=== PATIENT | male | born 1960 | race Caucasian/White ===

== ENCOUNTER 2020-09-28 08:45 | Day surgery (SDC) | payer BC ==
[2020-09-27 11:37] VITALS: BMI 25.1
[~2020-09-28 08:45] MED LIST: LACTATED RINGERS 1,000 ML IV SCH
[2020-09-28 09:04] VITALS: TEMP 98.2
[2020-09-28] MEDS ORDERED: PROPOFOL 10 MG/ML 20 ML VIAL IV ONE (09:30)
--- NOTE | 2020-09-28 09:34 | P.GSHP ---
History of Present Illness H&P Date: 09/28/20 Chief Complaint: Screening colonoscopy Is a 59-year-old male presents today for screening colonoscopy. Patient denies a significant GI complaints. He's never had a colonoscopy before. Past Medical History Past Medical History: Osteoarthritis (OA) History of Any Multi-Drug Resistant Organisms: None Reported Past Surgical History: Hernia Repair Past Anesthesia/Blood Transfusion Reactions: No Reported Reaction Past Psychological History: No Psychological Hx Reported Smoking Status: Current every day smoker Past Alcohol Use History: Occasional Additional Past Alcohol Use History / Comment(s): smokes 4-5 cigarettes daily, has smoked for 30 yrs Past Drug Use History: None Reported - Past Family History Mother Family Medical History: Cancer Medications and Allergies Home Medications Medication Instructions Recorded Confirmed Type Multivitamins, Thera [Multivitamin 1 tab PO DAILY 09/27/20 09/27/20 History (formulary)] Allergies Allergy/AdvReac Type Severity Reaction Status Date / Time No Known Allergies Allergy Verified 09/27/20 11:31 Surgical - Exam Vital Signs Temp Pulse Resp BP Pulse Ox 98.2 F 72 20 153/94 91 L 09/28/20 09:02 09/28/20 09:02 09/28/20 09:02 09/28/20 09:02 09/28/20 09:02 - General well developed, well nourished, no distress - Eyes PERRL - ENT normal pinna - Neck no masses - Respiratory normal expansion - Cardiovascular Rhythm: regular - Abdomen Abdomen: soft, non tender Assessment and Plan Assessment: We'll perform screening colonoscopy.
--- NOTE | 2020-09-28 09:47 | P.OP ---
Date of Procedure: 09/28/20 Preoperative Diagnosis: Screening colonoscopy Postoperative Diagnosis: Diverticulosis Procedure(s) Performed: Colonoscopy Anesthesia: MAC Surgeon: Jose Neal Pathology: none sent Condition: stable Disposition: PACU Description of Procedure: The patient's placed on the endoscopy table in the lateral position. He received IV sedation. Digital rectal exam was performed which revealed no abnormalities. The flexible colonoscope was then placed patient anus passed throughout the entire colon. Ileocecal valve sutures. The cecum, ascending and transverse colon appeared normal. In the descending and sigmoid colon there is moderate diverticular changes. Scope was then brought back the rectum and this appeared normal. Scope was withdrawn for patient.
[2020-09-28 09:51] VITALS: RESP 16
[2020-09-28 10:06] VITALS: BP 117/79; PULSE 70
== END 2020-09-28 10:37 | disposition home or self-care (01) ==
LOC: ORWHC2ENDO 08:45
PROVIDERS: ATTEND Surgery
DX: Z12.11 Encounter for screening for malignant neoplasm of colon (principal); K57.30 Diverticulosis of large intestine without perforation or abscess without bleeding; M19.90 Unspecified osteoarthritis, unspecified site; Z98.890 Other specified postprocedural states; F17.210 Nicotine dependence, cigarettes, uncomplicated; Z80.9 Family history of malignant neoplasm, unspecified
CPT/HCPCS: J2704; G0121; 45378

== ENCOUNTER → 2023-05-21 | Outpatient (CLI) | payer OTHER ==
--- NOTE | 2023-05-21 15:38 | XR ---
EXAMINATION TYPE: XR chest 2V DATE OF EXAM: 05/21/2023 COMPARISON: NONE HISTORY: Chronic cough. TECHNIQUE: Frontal and lateral views of the chest are obtained. FINDINGS: There is no focal air space opacity, pleural effusion, or pneumothorax seen. The cardiac silhouette size is within normal limits. The osseous structures are intact. IMPRESSION: No acute cardiopulmonary process.
== END | disposition home or self-care (01) ==
LOC: RADXRMAIN 15:18
PROVIDERS: ATTEND Family Medicine
DX: J18.9 Pneumonia, unspecified organism (principal); R05.3 Chronic cough
CPT/HCPCS: 71046

== ENCOUNTER → 2023-07-02 | Outpatient (CLI) | payer OTHER ==
--- NOTE | 2023-07-02 16:59 | XR ---
EXAMINATION TYPE: XR chest 2V DATE OF EXAM: 07/02/2023 4:52 PM CLINICAL INDICATION:Male, 62 years old with history of M17.12 UNILATERAL PRIMARY OSTEOARTHRITIS, LEFT KNE; PHH COMPARISON: Chest radiographs fro 05/21/2023. TECHNIQUE: XR chest 2V Frontal and lateral views of the chest. FINDINGS: Lungs/Pleura: Right middle lobe airspace opacities. There is flattening of diaphragms with increased lucency in the lung apices. Pulmonary vascularity: Unremarkable. Heart/mediastinum: Cardiomediastinal silhouette is unremarkable. Musculoskeletal: No acute osseous pathology. Other findings: None IMPRESSION: 1. Right lower lobe airspace opacities correlate for pneumonia. 2. COPD changes.
[2023-07-02 18:11] LABS: Appearance,Urine Clear (Clear); Bilirubin,Urine Negative (Negative); Blood,Urine Moderate (Negative); Color,Urine Yellow; Glucose,Urine (UA) 1+ (Negative); Ketones,Urine Negative (Negative); Leukocyte Esterase,Urine Negative (Negative); Nitrite,Urine Negative (Negative); Protein,Urine Negative (Negative); RBC,Urine 10 /hpf (0-5); Specific Gravity,Urine 1.012 (1.001-1.035); WBC,Urine 1 /hpf (0-5)
[2023-07-03 02:06] LABS: ALT 27 U/L (10-49); AST 12 U/L (14-35); Albumin 4.1 g/dL (3.8-4.9); Albumin/Globulin Ratio 1.52 Ratio (1.60-3.17); Alkaline Phosphatase 62 U/L (41-126); BUN/Creat Ratio 14.14 Ratio (12.00-20.00); Blood Urea Nitrogen 9.9 mg/dL (9.0-27.0); Carbon Dioxide 25.8 mmol/L (21.6-31.8); Chloride 94 mmol/L (96-109); Globulin 2.7 g/dL (1.6-3.3); Glucose 115 mg/dL (70-110); Potassium 4.2 mmol/L (3.5-5.5); Sodium 132 mmol/L (135-145); Total Bilirubin 0.5 mg/dL (0.3-1.2); Total Protein 6.8 g/dL (6.2-8.2)
[2023-07-03 04:19] LABS: HCT 34.6 % (39.6-50.0); HGB 11.2 g/dL (13.0-17.0); MCH 35.3 pg (27.0-32.0); MCHC 32.4 g/dL (32.0-37.0); MCV 109.1 FL (80.0-97.0); Mean Platelet Volume 10.3 FL (9.5-12.2); NRBC Per 100 WBC 0 X 10*3/uL (0.00-0.01); Platelet Count 178 X 10*3/uL (140-440); RBC 3.17 X 10*6/uL (4.40-5.60); RDW 14.2 % (11.5-14.5); WBC 19.01 X 10*3/uL (4.50-10.00)
[2023-07-03 04:20] LABS: Basophils # (M) 0.38 X 10*3/uL (0.00-0.10); Eosinophils # (M) 0 X 10*3/uL (0.04-0.35); Lymphocytes # (M) 15.78 X 10*3/uL (0.90-5.00); Macrocytosis (M) 2+; Monocytes # (M) 0 X 10*3/uL (0.20-1.00); Neutrophils # (M) 2.85 X 10*3/uL (1.80-7.70); Neutrophils % (M) 15 %
== END | disposition home or self-care (01) ==
LOC: RADXRMAIN 15:51
PROVIDERS: ATTEND Family Medicine
DX: J44.9 Chronic obstructive pulmonary disease, unspecified (principal); R91.8 Other nonspecific abnormal finding of lung field
CPT/HCPCS: 71046; 80053; 81001; 85025

== ENCOUNTER 2023-08-04 15:11 | Observation (INO) | payer OTHER ==
[2023-08-04 16:07] LABS: ALT 15 U/L (4-49); AST 15 U/L (17-59); African American GFR (CKD) >90 (>60 ml/min/1.73 sqM); Albumin 3.7 g/dL (3.5-5.0); Alkaline Phosphatase 55 U/L (38-126); Anion Gap 6 mmol/L; Blood Urea Nitrogen 20 mg/dL (9-20); Calcium 8.6 mg/dL (8.4-10.2); Carbon Dioxide 28 mmol/L (22-30); Chloride 100 mmol/L (98-107); Glucose 100 mg/dL (74-99); Non-African American GFR(CKD) >90 (>60 ml/min/1.73 sqM); Potassium 4.6 mmol/L (3.5-5.1); Sodium 134 mmol/L (137-145); Total Bilirubin 0.7 mg/dL (0.2-1.3); Total Protein 6.4 g/dL (6.3-8.2)
[2023-08-04 16:10] LABS: INR 0.9 (<1.2); Partial Thromboplastin Time 26.1 sec (22.0-30.0)
--- NOTE | 2023-08-04 16:10 | ED ---
General Adult HPI - General Chief complaint: Shortness of Breath Stated complaint: SOB Time Seen by Provider: 08/04/23 15:47 Source: patient, RN notes reviewed, old records reviewed Mode of arrival: ambulatory Limitations: no limitations - History of Present Illness Initial comments: 62-year-old male presenting for evaluation of cough and dyspnea. Symptoms have been progressive over the past 6 weeks. He does have previous diagnosis of COPD and was a smoker for many years. Not currently smoking. No fever. Cough continues which is nonproductive. No central chest pain. No fever. No lower extremity pain or swelling. Patient just completed a course of steroids and Levaquin as an outpatient. - Related Data Home Medications Medication Instructions Recorded Confirmed Multivitamins, Thera [Multivitamin 1 tab PO DAILY 09/27/20 09/27/20 (formulary)] Allergies Allergy/AdvReac Type Severity Reaction Status Date / Time No Known Allergies Allergy Verified 08/04/23 15:17 Review of Systems ROS Statement: Those systems with pertinent positive or pertinent negative responses have been documented in the HPI. ROS Other: All systems not noted in ROS Statement are negative. Past Medical History Past Medical History: COPD, Osteoarthritis (OA) Additional Past Medical History / Comment(s): CLL History of Any Multi-Drug Resistant Organisms: None Reported Past Surgical History: Hernia Repair Past Anesthesia/Blood Transfusion Reactions: No Reported Reaction Past Psychological History: No Psychological Hx Reported Smoking Status: Former smoker Past Alcohol Use History: Occasional Past Drug Use History: None Reported - Past Family History Mother Family Medical History: Cancer General Exam Limitations: no limitations General appearance: alert, in no apparent distress Head exam: Present: atraumatic, normocephalic Eye exam: Present: normal appearance, PERRL Neck exam: Present: normal inspection. Absent: tenderness, meningismus Respiratory exam: Present: respiratory distress, decreased breath sounds. Absent: wheezes Cardiovascular Exam: Present: regular rate, normal rhythm GI/Abdominal exam: Present: soft. Absent: distended, tenderness, guarding Extremities exam: Present: normal inspection, normal capillary refill. Absent: pedal edema Neurological exam: Present: alert, oriented X3, CN II-XII intact. Absent: motor sensory deficit Psychiatric exam: Present: normal affect, normal mood Skin exam: Present: warm, dry, intact Course Vital Signs 08/04/23 08/04/23 08/04/23 15:12 17:17 18:21 Temperature 98.7 F Pulse Rate 98 101 H 100 Respiratory 16 16 Rate Blood Pressure 142/88 129/82 O2 Sat by Pulse 93 L 94 L Oximetry 08/04/23 18:37 Temperature Pulse Rate 106 H Respiratory Rate Blood Pressure O2 Sat by Pulse Oximetry Medical Decision Making - Medical Decision Making Was pt. sent in by a medical professional or institution (, [facility], [facility], urgent care, hospital, or long-term...) When possible be specific @ -No Did you speak to anyone other than the patient for history (EMS, parent, family, police, friend...)? What history was obtained from this source @ -No Did you review nursing and triage notes (agree or disagree)? Why? @ -I reviewed and agree with nursing and triage notes Were old charts reviewed (outside hosp., previous admission, EMS record, old EKG, old radiological studies, urgent care reports/EKG's, long-term records)? Report findings @ -No old charts were reviewed Differential Diagnosis (chest pain, altered mental status, abdominal pain women, abdominal pain men, vaginal bleeding, weakness, fever, dyspnea, syncope, headache, dizziness, GI bleed, back pain, seizure, CVA, palpatations, mental health, musculoskeletal)? @Differential Dyspnea: Coronary syndrome, arrhythmia, tamponade, asthma, COPD, pulmonary embolism, pneumonia, pneumothorax, pulmonary effusion, anaphylaxis, diabetic ketoacidosis, flailed chest, pulmonary contusion, diaphragmatic rupture, anemia, neuromuscular, this is not meant to be an all-inclusive list. EKG interpreted by me (3pts min.). @ -Sinus rhythm rate of 99, OH interval 130, QRS duration 81, QTc [address] segment elevation. X-rays interpreted by me (1pt min.). @Chest x-ray consistent with COPD without focal pneumonia or pneumothorax CT interpreted by me (1pt min.). @ -None done U/S interpreted by me (1pt. min.). @ -None done What testing was considered but not performed or refused? (CT, X-rays, U/S, labs)? Why? @ -None What meds were considered but not given or refused? Why? @ -None Did you discuss the management of the patient with other professionals (professionals i.e. , PA, VISUAL STYLIST, lab, RT, psych nurse, social welfare research worker, assignment officer, teacher, branch lending officer, mattress spring encaser)? Give summary @Dr. Mendieta Was smoking cessation discussed for >3mins.? @ -No Was critical care preformed (if so, how long)? @ -No Were there social determinants of health that impacted care today? How? (Homelessness, low income, unemployed, alcoholism, drug addiction, transportation, low edu. Level, literacy, decrease access to med. care, fci, rehab)? @ -No Was there de-escalation of care discussed even if they declined (Discuss DNR or withdrawal of care, Hospice)? DNR status @ -No What co-morbidities impacted this encounter? (DM, HTN, Smoking, COPD, CAD, Ca ncer, CVA, ARF, Chemo, Hep., AIDS, mental health diagnosis, sleep apnea, morbid obesity)? @ -[COPD, CLL Was patient admitted / discharged? Hospital course, mention meds given and route, prescriptions, significant lab abnormalities, going to OR and other pertinent info. @ -62-year-old male with cough and dyspnea over the past 6 weeks, has been on multiple rounds of antibiotics, and steroids and continues to have moderate dyspnea. Patient has mild respiratory distress with decreased air entry b ilaterally. Abnormal CBC and history of CLL. Normal electrolytes, negative troponin, negative BNP. D-dimer pending. Patient started on IV steroids, albuterol, Atrovent, antibiotics for COPD exacerbation. He will be admitted to Dr. Mendieta with pulmonary on consult. Undiagnosed new problem with uncertain prognosis? @ -[No Drug Therapy requiring intensive monitoring for toxicity (Heparin, Nitro, Insulin, Cardizem)? @ -No Were any procedures done? @ -No Diagnosis/symptom? @ -COPD exacerbation Acute, or Chronic, or Acute on Chronic? @Acute Uncomplicated (without systemic symptoms) or Complicated (systemic symptoms)? @ -Default Side effects of treatment? @ -No Exacerbation, Progression, or Severe Exacerbation? @ -No Poses a threat to life or bodily function? How? (Chest pain, USA, SD, pneumonia, PE, COPD, DKA, ARF, appy, cholecystitis, CVA, Diverticulitis, Homicidal, Suicidal, threat to staff... and all critical care pts) @ -yes, respiratory failure - Lab Data Result diagrams: 08/04/23 15:21 08/04/23 15:21 Lab Results 08/04/23 08/04/23 08/04/23 Range/Units 15:21 15:21 15:21 WBC 28.0 H (3.8-10.6) k/uL RBC 3.08 L (4.30-5.90) m/uL Hgb 11.3 L (13.0-17.5) gm/dL Hct 33.6 L (39.0-53.0) % MCV 108.9 H (80.0-100.0) fL MCH 36.8 H (25.0-35.0) pg MCHC 33.7 (31.0-37.0) g/dL RDW 14.7 (11.5-15.5) % Plt Count 157 (150-450) k/uL MPV 8.5 Neutrophils % (Manual) 4 % Lymphocytes % (Manual) 90 % Monocytes % (Manual) 6 % Neutrophils # (Manual) 1.12 L (1.3-7.7) k/uL Lymphocytes # (Manual) 25.20 H (1.0-4.8) k/uL Monocytes # (Manual) 1.68 H (0-1.0) k/uL Nucleated RBCs 0 (0-0) /100 WBC Differential Comment Manual Slide Review Performed Macrocytosis Marked A PT 10.0 (10.0-12.5) sec INR 0.9 (<1.2) APTT 26.1 (22.0-30.0) sec Sodium 134 L (137-145) mmol/L Potassium 4.6 (3.5-5.1) mmol/L Chloride 100 (98-107) mmol/L Carbon Dioxide 28 (22-30) mmol/L Anion Gap 6 mmol/L BUN 20 (9-20) mg/dL Creatinine 0.69 (0.66-1.25) mg/dL Est GFR (CKD-EPI)AfAm >90 (>60 ml/min/1.73 sqM) Est GFR (CKD-EPI)NonAf >90 (>60 ml/min/1.73 sqM) Glucose 100 H (74-99) mg/dL Plasma Lactic Acid Benito (0.7-2.0) mmol/L Calcium 8.6 (8.4-10.2) mg/dL Total Bilirubin 0.7 (0.2-1.3) mg/dL AST 15 L (17-59) U/L ALT 15 (4-49) U/L Alkaline Phosphatase 55 (38-126) U/L Troponin I (0.000-0.034) ng/mL NT-Pro-B Natriuret Pep 249 pg/mL Total Protein 6.4 (6.3-8.2) g/dL Albumin 3.7 (3.5-5.0) g/dL Influenza Type A (PCR) (Not Detectd) Influenza Type B (PCR) (Not Detectd) RSV (PCR) (Not Detectd) SARS-CoV-2 (PCR) (Not Detectd) 08/04/23 08/04/23 08/04/23 Range/Units 15:21 15:21 16:25 WBC (3.8-10.6) k/uL RBC (4.30-5.90) m/uL Hgb (13.0-17.5) gm/dL Hct (39.0-53.0) % MCV (80.0-100.0) fL MCH (25.0-35.0) pg MCHC (31.0-37.0) g/dL RDW (11.5-15.5) % Plt Count (150-450) k/uL MPV Neutrophils % (Manual) % Lymphocytes % (Manual) % Monocytes % (Manual) % Neutrophils # (Manual) (1.3-7.7) k/uL Lymphocytes # (Manual) (1.0-4.8) k/uL Monocytes # (Manual) (0-1.0) k/uL Nucleated RBCs (0-0) /100 WBC Differential Comment Manual Slide Review Macrocytosis PT (10.0-12.5) sec INR (<1.2) APTT (22.0-30.0) sec Sodium (137-145) mmol/L Potassium (3.5-5.1) mmol/L Chloride (98-107) mmol/L Carbon Dioxide (22-30) mmol/L Anion Gap mmol/L BUN (9-20) mg/dL Creatinine (0.66-1.25) mg/dL Est GFR (CKD-EPI)AfAm (>60 ml/min/1.73 sqM) Est GFR (CKD-EPI)NonAf (>60 ml/min/1.73 sqM) Glucose (74-99) mg/dL Plasma Lactic Acid Benito 0.9 (0.7-2.0) mmol/L Calcium (8.4-10.2) mg/dL Total Bilirubin (0.2-1.3) mg/dL AST (17-59) U/L ALT (4-49) U/L Alkaline Phosphatase (38-126) U/L Troponin I <0.012 (0.000-0.034) ng/mL NT-Pro-B Natriuret Pep pg/mL Total Protein (6.3-8.2) g/dL Albumin (3.5-5.0) g/dL Influenza Type A (PCR) Not Detected (Not Detectd) Influenza Type B (PCR) Not Detected (Not Detectd) RSV (PCR) Not Detected (Not Detectd) SARS-CoV-2 (PCR) Not Detected (Not Detectd) Disposition Clinical Impression: Acute exacerbation of chronic obstructive pulmonary disease Disposition: ADMITTED IP TO THIS HOSP Condition: Stable Is patient prescribed a controlled substance at d/c from ED?: No Referrals: Napoleon Mendieta DO [Primary Care Provider] - 1-2 days Time of Disposition: 18:15
[2023-08-04 16:13] LABS: HCT 33.6 % (39.0-53.0); HGB 11.3 gm/dL (13.0-17.5); MCH 36.8 pg (25.0-35.0); MCHC 33.7 g/dL (31.0-37.0); MCV 108.9 fL (80.0-100.0); Macrocytosis Marked; Mean Platelet Volume 8.5; Platelet Count 157 k/uL (150-450); RBC 3.08 m/uL (4.30-5.90); RDW 14.7 % (11.5-15.5)
[2023-08-04 16:15] LABS: NT-Pro-B-Type Natriuretic Pept 249 pg/mL
[2023-08-04 16:36] LABS: Monocytes # (M) 1.68 k/uL (0-1.0); Neutrophils # (M) 1.12 k/uL (1.3-7.7); Neutrophils % (M) 4 %; Nucleated Red Blood Cells 0 /100 WBC (0-0); Total Cells Counted 200
--- NOTE | 2023-08-04 17:15 | XR ---
EXAMINATION TYPE: XR chest 2V DATE OF EXAM: 08/04/2023 COMPARISON: 07/02/2023 HISTORY: 62 year-old male shortness of breath, difficulty breathing TECHNIQUE: PA and lateral views FINDINGS: Heart normal size. Aorta and pulmonary vasculature within normal limits. Mild central peribronchial c uffing. There is hyperinflation. No consolidation or pleural effusion. IMPRESSION: COPD. No acute process seen.
[2023-08-04] MEDS: methylPREDNISolone SOD SUCCI 125 MG/2 ML VIAL IV STA (17:16)
[2023-08-04] MEDS: IPRATROPIUM-ALBUTEROL 3 ML NEB INHALATION STA (18:19)
[2023-08-04] MEDS: ALBUTEROL NEBULIZED 2.5 MG/3 ML INHALATION STA (18:19)
[2023-08-04] MEDS ORDERED: IPRATROPIUM-ALBUTEROL 3 ML NEB INHALATION PRN (18:43)
[2023-08-04] MEDS ORDERED: NALOXONE 0.4 MG/ML 1 ML VIAL IVP PRN (18:43)
[2023-08-04] MEDS: IPRATROPIUM-ALBUTEROL 3 ML NEB INHALATION SCH (19:59)
[2023-08-04] MEDS: AZITHROMYCIN 500 MG in SODIUM CHLORIDE 0.9% 250 ML IVPB STA (20:34)
[2023-08-04] MEDS: methylPREDNISolone SOD SUCCI 125 MG/2 ML VIAL IV SCH (21:26)
[2023-08-04] MEDS: ACETAMINOPHEN TAB 500 MG TAB PO PRN (22:50)
[2023-08-05 07:47] VITALS: RESP 16
[2023-08-05] MEDS: SYMBICORT 160-4.5 MCG INHALER INHALATION SCH (08:49)
[2023-08-05] MEDS ORDERED: DEXTROSE 50% SYRINGE 50 ML IVP PRN ×2 (11:59)
--- NOTE | 2023-08-05 11:59 | P.HPIM ---
History of Present Illness H&P Date: 08/05/23 Chief Complaint: Worsening dyspnea This is a 62-year-old gentleman with past medical history significant for recent COVID-pneumonia approximately 6 weeks ago, with 3 subsequent follow-up visits outpatient with PCP receiving steroids, Rocephin , Levaquin without significant improvement, progressive dyspnea. Chest x-ray from 07/02/2023 reported right lower lobe airspace opacities correlating for pneumonia. Patient also has prior history of former nicotine dependence, smoked for 5 cigarettes daily for 30 years, COPD, osteoarthritis, CLL. Reports he is currently not not on any treatment for his CLL at this time, just monitoring. Prior cough but currently denies. Denies chest pain, palpitations. Troponins negative x 1 , EKG reported sinus rhythm .denies fever or chills. On admission, afebrile, maintaining O2 sats in the 90s on room air, mild/minimal tachycardia-resolved. Elevated WBC 28, recently completed steroid taper. Hemoglobin 1.3, MCV 108.9, platelets 157, neutrophils 1.12, lymphocytes 25.2. Coagulation panel unremarkable. Sodium 134, potassium 4.6, bicarb 28 BUN 20, creatinine 0.69. Glucose 100, lactic acid 0.9, LFTs within normal limits, with AST level mildly decreased at 15. Serology did not detect influenza type A/type B/RSV/COVID. Chest x-ray reporting COPD; mild central peribronchial cuffing, hyperinflation without consolidation or ple ural effusion, no acute process seen. Review of Systems ROS Statement: Those systems with pertinent positive or pertinent negative responses have been documented in the HPI. ROS Other: All systems not noted in ROS Statement are negative. Past Medical History Past Medical History: COPD, Osteoarthritis (OA) Additional Past Medical History / Comment(s): CLL History of Any Multi-Drug Resistant Organisms: None Reported Past Surgical History: Hernia Repair Past Anesthesia/Blood Transfusion Reactions: No Reported Reaction Past Psychological History: No Psychological Hx Reported Smoking Status: Former smoker Past Alcohol Use History: Occasional Additional Past Alcohol Use History / Comment(s): smokes 4-5 cigarettes daily, has smoked for 30 yrs Past Drug Use History: None Reported - Past Family History Mother Family Medical History: Cancer Medications and Allergies Home Medications Medication Instructions Recorded Confirmed Type Albuterol Sulfate [Albuterol 2 puff INHALATION RT-Q4H PRN 08/04/23 08/04/23 History Sulfate Hfa] Allergies Allergy/AdvReac Type Severity Reaction Status Date / Time No Known Allergies Allergy Verified 08/04/23 15:17 Physical Exam Vitals: Vital Signs Temp Pulse Pulse Resp BP BP Pulse Ox 08/05/23 09:04 84 08/05/23 08:49 84 08/05/23 07:00 98.3 F 77 16 126/83 94 L 08/05/23 02:12 97.5 F L 83 15 121/70 95 08/04/23 21:10 97.9 F 100 18 128/75 97 08/04/23 20:08 100 08/04/23 19:59 103 H 08/04/23 19:55 98.6 F 98 18 114/79 98 08/04/23 18:41 16 08/04/23 18:37 106 H 08/04/23 18:21 100 08/04/23 17:17 101 H 16 129/82 94 L 08/04/23 15:12 98.7 F 98 16 142/88 93 L Intake and Output 08/04/23 08/05/23 08/05/23 22:59 06:59 14:59 Intake Total 180 Balance 180 Intake: Oral 180 Other: # Voids 1 1 Weight 81.647 kg PHYSICAL EXAM: VITAL SIGNS: [As above] GENERAL: Alert and oriented x 3, sitting up in bed, no acute distress HEENT: Normocephalic, atraumatic, conjunctivae normal. eyes normal. NECK: Supple, no JVD. No thyroid enlargement. No LNs CARDIOVASCULAR: S1, S2 regular. No murmur RESPIRATION: Unlabored, equal air entry ,breath sounds diminished in the bases. ABDOMEN: Soft, nondistended, nontender . No guarding. no masses palpable. No ascites, No hepatosplenomegaly.positive bowel sounds LEGS: No edema. no swelling, no calf tenderness, positive DP pulses. NERVOUS SYSTEM: Cranial N 2-12 grossly normal. No focal deficits. Strength and sensation grossly intact. Skin: Warm and dry, no rash Results CBC & Chem 7: 08/04/23 15:21 08/04/23 15:21 Labs: Abnormal Lab Results - Last 24 Hours (Table) 08/04/23 08/04/23 Range/Units 15:21 15:21 WBC 28.0 H (3.8-10.6) k/uL RBC 3.08 L (4.30-5.90) m/uL Hgb 11.3 L (13.0-17.5) gm/dL Hct 33.6 L (39.0-53.0) % MCV 108.9 H (80.0-100.0) fL MCH 36.8 H (25.0-35.0) pg Neutrophils # (Manual) 1.12 L (1.3-7.7) k/uL Lymphocytes # (Manual) 25.20 H (1.0-4.8) k/uL Monocytes # (Manual) 1.68 H (0-1.0) k/uL Macrocytosis Marked A Sodium 134 L (137-145) mmol/L Glucose 100 H (74-99) mg/dL AST 15 L (17-59) U/L Thrombosis Risk Factor Assmnt - Choose All That Apply Any of the Below Risk Factors Present?: Yes Each Factor Represents 1 point: Abnormal pulmonary function (COPD), Obesity (BMI >25) Other Risk Factors: Yes Each Risk Factor Represents 2 Points: Age 61-74 years Other congenital or acquired thrombophilia - If yes, enter type in comment: No Thrombosis Risk Factor Assessment Total Risk Factor Score: 4 Thrombosis Risk Factor Assessment Level: Moderate Risk Assessment and Plan Assessment: Acute COPD exacerbation Recent COVID pneumonia 6 weeks ago. Chest x-ray 07/02 reported right lower lobe airspace opacities, repeat chest x-ray on admission reporting no acute process. Immunocompromised in a patient with history of CLL COPD Prior nicotine dependence x 30 years Osteoarthritis Plan: Continue on current medication regimen, monitoring and symptomatic treatment. Aggressive pulmonary toileting, maintain nebulized bronchodilators, Pulmicort, IV steroids,azithromycin and ceftriaxone. Blood cultures in progress. Procalcitonin pending. Pulmonary consult in place, recommendations pending. The impression and plan of care has been dictated as directed. : I performed a history and examination of this patient, discussed the same with the dictator. I agree with the dictator's note ,documented as a scribe. Any additional findings or plans will be noted.
[2023-08-05 12:30] LABS: Glucose,Whole Blood 137 mg/dL (70-110)
[2023-08-05] MEDS: INSULIN ASPART (NovoLOG) 100 UNIT/ML VIAL SQ SCH (12:32)
[2023-08-05] MEDS: PANTOPRAZOLE 40 MG/10 ML VIAL IVP SCH (12:33)
--- NOTE | 2023-08-05 12:51 | P.CNPUL ---
History of Present Illness Consult date: 08/05/23 Requesting physician: Napoleon Mendieta Reason for consult: dyspnea, abnormal CXR/CT Chief complaint: Shortness of breath, cough, congestion History of present illness: This is a pleasant 62-year-old male patient with a known history of chronic lymphocytic leukemia, chronic obstructive pulmonary disease, former smoker of greater than 40 years however quit 5 years ago. He is maintained on albuterol in the outpatient setting. He does not follow with pulmonology. He developed COVID infection in June 2023 and since that time he has been having issues with shortness of breath cough and congestion. He has been on steroids twice and most recently on Levaquin. He gets better briefly but then his symptoms return. He presented here to the emergency room yesterday with ongoing issues with shortness of breath cough and congestion. Chest x-ray reveals evidence of COPD but no acute pulmonary process. White count 28.0. Hemoglobin 11.3. Platelets 157. D-dimer 0.25. Sodium 134. Potassium 4.6. Bicarb 28. BUN 20. Creatinine 0.69. Glucose 100. proBNP 249. Procalcitonin 0.05. Influenza, RSV and COVID-19 screens negative. He is seen today in consultation on the regular medical floor. He is currently sitting up in bed. Awake and alert in no acute distress. Breathing a bit easier today compared to yesterday. He has been initiated on DuoNeb inhalations, Symbicort, Solu-Medrol. Review of Systems REVIEW OF SYSTEMS: CONSTITUTIONAL: Denies any recent significant weight loss or weight gain. EYES: Denies change in vision. EARS, NOSE, MOUTH, THROAT: Denies headaches, denies sore throat. CARDIOVASCULAR: Denies chest pain, palpitations or syncopal episodes. RESPIRATORY: Positive for shortness of breath, cough, congestion no hemoptysis. GASTROINTESTINAL: Denies change in appetite, denies abdominal pain GENITOURINARY: Denies hematuria, denies infections. MUSKULOSKELETAL: Denies pain, denies swelling. INTEGUMENTARY: Denies rash, denies eczema. NEUROLOGICAL: Denies recent memory loss, no recent seizure activity. PSYCHIATRIC: Denies anxiety, denies depression. HEMATOLOGIC/LYMPHATIC: Denies anemia, denies enlarged lymph nodes. Past Medical History Past Medical History: COPD, Osteoarthritis (OA) Additional Past Medical History / Comment(s): CLL History of Any Multi-Drug Resistant Organisms: None Reported Past Surgical History: Hernia Repair Past Anesthesia/Blood Transfusion Reactions: No Reported Reaction Past Psychological History: No Psychological Hx Reported Smoking Status: Former smoker Past Alcohol Use History: Occasional Additional Past Alcohol Use History / Comment(s): smokes 4-5 cigarettes daily, has smoked for 30 yrs Past Drug Use History: None Reported - Past Family History Mother Family Medical History: Cancer Medications and Allergies Home Medications Medication Instructions Recorded Confirmed Type Albuterol Sulfate [Albuterol 2 puff INHALATION RT-Q4H PRN 08/04/23 08/04/23 History Sulfate Hfa] Allergies Allergy/AdvReac Type Severity Reaction Status Date / Time No Known Allergies Allergy Verified 08/04/23 15:17 Physical Exam Vitals: Vital Signs Temp Pulse Pulse Resp BP BP Pulse Ox 08/05/23 12:29 80 08/05/23 12:19 72 08/05/23 09:04 84 08/05/23 08:49 84 08/05/23 07:00 98.3 F 77 16 126/83 94 L 08/05/23 02:12 97.5 F L 83 15 121/70 95 08/04/23 21:10 97.9 F 100 18 128/75 97 08/04/23 20:08 100 08/04/23 19:59 103 H 08/04/23 19:55 98.6 F 98 18 114/79 98 08/04/23 18:41 16 08/04/23 18:37 106 H 08/04/23 18:21 100 08/04/23 17:17 101 H 16 129/82 94 L 08/04/23 15:12 98.7 F 98 16 142/88 93 L Intake and Output 08/04/23 08/05/23 08/05/23 22:59 06:59 14:59 Intake Total 180 Balance 180 Intake: Oral 180 Other: # Voids 1 1 Weight 81.647 kg GENERAL EXAM: Alert, pleasant 62-year-old male patient, on room air, comfortable in no apparent distress. HEAD: Normocephalic. EYES: Normal reaction of pupils, equal size. NOSE: Clear with pink turbinates. THROAT: No erythema or exudates. NECK: No masses, no JVD. CHEST: No chest wall deformity. LUNGS: Equal air entry with bilateral end expiratory wheeze, diminished. CVS: S1 and S2 normal with no audible murmur, regular rhythm. ABDOMEN: No hepatosplenomegaly, normal bowel sounds, no guarding or rigidity. SPINE: No scoliosis or deformity SKIN: No rashes CENTRAL NERVOUS SYSTEM: No focal deficits, tone is normal in all 4 extremities. EXTREMITIES: There is no peripheral edema. No clubbing, no cyanosis. Peripheral pulses are intact. Results - Laboratory Findings CBC and BMP: 08/04/23 15:21 08/04/23 15:21 PT/INR, D-dimer PT 10.0 sec (10.0-12.5) 08/04/23 15:21 INR 0.9 (<1.2) 08/04/23 15:21 D-Dimer 0.25 mg/L FEU (<0.60) 08/04/23 15:21 Abnormal lab findings: Abnormal Labs 08/04/23 08/04/23 08/05/23 15:21 15:21 12:29 WBC 28.0 H RBC 3.08 L Hgb 11.3 L Hct 33.6 L MCV 108.9 H MCH 36.8 H Neutrophils # (Manual) 1.12 L Lymphocytes # (Manual) 25.20 H Monocytes # (Manual) 1.68 H Macrocytosis Marked A Sodium 134 L Glucose 100 H POC Glucose (mg/dL) 137 H AST 15 L - Diagnostic Findings Chest x-ray: image reviewed Assessment and Plan Assessment: Acute exacerbation of chronic obstructive pulmonary disease, failed outpatient treatment. Chest x-ray reveals evidence of COPD but no acute pulmonary process. Procalcitonin negative. Viral screen negative. History of significant previous tobacco dependence however quit 5 years ago History of chronic lymphocytic leukemia Plan: The patient was seen and evaluated Chest x-ray, labs and medications reviewed Continue DuoNeb inhalations, Symbicort Continue Solu-Medrol No need for antibiotics Procalcitonin negative Chest x-ray reveals COPD, no acute process He would benefit from outpatient workup including full pulmonary function test ing We will continue to follow and make further recommendations based on his clinical status I have personally seen and examined the patient, performed the documentation and the assessment and plan as written. Number of minutes spent on the visit: 20.
[2023-08-05 17:15] LABS: Glucose,Whole Blood 174 mg/dL (70-110)
[2023-08-05 20:43] LABS: Glucose,Whole Blood 166 mg/dL (70-110)
[2023-08-06 05:55] LABS: Glucose,Whole Blood 154 mg/dL (70-110)
[2023-08-06 07:30] VITALS: BP 139/66; TEMP 97.7
[2023-08-06] MEDS: predniSONE 20 MG TAB PO SCH (09:43)
--- NOTE | 2023-08-06 10:51 | P.PN ---
Subjective Progress Note Date: 08/06/23 This is a pleasant 62-year-old male patient with a known history of chronic lymphocytic leukemia, chronic obstructive pulmonary disease, former smoker of greater than 40 years however quit 5 years ago. He is maintained on albuterol in the outpatient setting. He does not follow with pulmonology. He developed COVID infection in June 2023 and since that time he has been having issues with shortness of breath cough and congestion. He has been on steroids twice and most recently on Levaquin. He gets better briefly but then his symptoms return. He presented here to the emergency room yesterday with ongoing issues with shortness of breath cough and congestion. Chest x-ray reveals evidence of COPD but no acute pulmonary process. White count 28.0. Hemoglobin 11.3. Platelets 157. D-dimer 0.25. Sodium 134. Potassium 4.6. Bicarb 28. BUN 20. Creatinine 0.69. Glucose 100. proBNP 249. Procalcitonin 0.05. Influenza, RSV and COVID-19 screens negative. He is seen today in consultation on the regular medical floor. He is currently sitting up in bed. Awake and alert in no acute distress. Breathing a bit easier today compared to yesterday. He has been initiated on DuoNeb inhalations, Symbicort, Solu-Medrol. The patient is seen today August 06, 2023 in follow-up on the regular medical floor. He is currently sitting up at the bedside. Awake and alert in no acute distress. Doing quite a bit better today compared to yesterday. He is maintaining good O2 saturations in the 90s on room air. Blood cultures revealed no growth. Blood sugar 154. He is continued on DuoNeb inhalations, Symbicort, Solu-Medrol. Objective - Vital Signs Vital signs: Vital Signs Temp 97.7 F 08/06/23 07:00 Pulse 88 08/06/23 08:33 Resp 16 08/06/23 07:00 BP 139/66 08/06/23 07:00 Pulse Ox 95 08/06/23 07:00 FiO2 Intake & Output 08/05/23 08/06/23 08/06/23 18:59 06:59 18:59 Intake Total 180 240 Balance 180 240 Intake: Oral 180 240 Other: # Voids 2 1 - Exam GENERAL EXAM: Alert, 62-year-old male, on room air, sitting up at the bedside, comfortable in no apparent distress. HEAD: Normocephalic. EYES: Normal reaction of pupils, equal size. NOSE: Clear with pink turbinates. THROAT: No erythema or exudates. NECK: No masses, no JVD. CHEST: No chest wall deformity. LUNGS: Equal air entry with faint bilateral end expiratory wheeze, diminished. CVS: S1 and S2 normal with no audible murmur, regular rhythm. ABDOMEN: No hepatosplenomegaly, normal bowel sounds, no guarding or rigidity. SPINE: No scoliosis or deformity SKIN: No rashes CENTRAL NERVOUS SYSTEM: No focal deficits, tone is normal in all 4 extremities. EXTREMITIES: There is no peripheral edema. No clubbing, no cyanosis. Peripheral pulses are intact. - Labs CBC & Chem 7: 08/04/23 15:21 08/04/23 15:21 Labs: Abnormal Lab Results - Last 24 Hours (Table) 08/05/23 08/05/23 08/05/23 Range/Units 12:29 17:12 20:42 POC Glucose (mg/dL) 137 H 174 H 166 H (70-110) mg/dL 08/06/23 Range/Units 05:55 POC Glucose (mg/dL) 154 H (70-110) mg/dL Microbiology - Last 24 Hours (Table) 08/04/23 19:10 Blood Culture - Preliminary Blood 08/04/23 19:25 Blood Culture - Preliminary Blood Assessment and Plan Assessment: Acute exacerbation of chronic obstructive pulmonary disease, failed outpatient treatment. Chest x-ray reveals evidence of COPD but no acute pulmonary process. Procalcitonin negative. Viral screen negative. History of significant previous tobacco dependence however quit 5 years ago History of chronic lymphocytic leukemia Plan: The patient was seen and evaluated Labs and medications reviewed He remains stable and on room air Cleared for discharge from the pulmonary standpoint Continue DuoNeb inhalations at home Will order a nebulizer Continue Symbicort Complete a prednisone taper Follow-up in our office in 1 week This patient was seen independently by the pulmonary nurse practitioner addressing pulmonary issues I have personally seen and examined the patient, performed the documentation and the assessment and plan as written. Number of minutes spent on the visit: 23.
[2023-08-06 12:15] VITALS: PULSE 84
[2023-08-06 12:20] LABS: Glucose,Whole Blood 133 mg/dL (70-110)
== END 2023-08-06 13:35 | disposition home or self-care (01) ==
LOC: EC 15:11 → 6NMEDSUR 18:44
PROVIDERS: ADMIT Family Medicine; ATTEND Family Medicine
DX: J44.1 Chronic obstructive pulmonary disease with (acute) exacerbation (principal); M19.90 Unspecified osteoarthritis, unspecified site; C91.10 Chronic lymphocytic leukemia of B-cell type not having achieved remission; Z11.52 Encounter for screening for COVID-19; Z87.891 Personal history of nicotine dependence; Z79.899 Other long term (current) drug therapy; Z86.16 Personal history of COVID-19; Z87.01 Personal history of pneumonia (recurrent)
CPT/HCPCS: 96376 ×3; 96365; 96367; 96375; 99285; 36415; 94640 ×5; 93005; 85379; 83880; 80053; 83605; 84484; 85025; 85610; 85730; 87040; 83036; 84145; 87636; 71046; G0378 ×3; J2930 ×3; J0456; J0696; J7512

== ENCOUNTER → 2023-08-20 | Outpatient (CLI) | payer OTHER ==
--- NOTE | 2023-08-20 16:05 | CT ---
EXAMINATION TYPE: CT angio chest DATE OF EXAM: 08/20/2023 COMPARISON: Radiograph 08/20/2023 HISTORY: 62-year-old male R06.09, shortness of breath, dyspnea TECHNIQUE: Contiguous axial scanning of the chest after the administration of 100 mL of Isovue 370. Coronal/sagittal reconstructions performed. CT DLP: 266.3mGycm. Automatic exposure control utilized for a dose reduction. FINDINGS: The heart is normal size with small anterior pericardial effusion measuring 1 cm thick. There is some left ventricular wall hypertrophy noted. No reflux of contrast into the hepatic veins. Aorta normal caliber with conventional arteriogram is a branching anatomy. There is thoracic adenopathy with axillary nodes measuring up to 2.5 cm, right paratracheal measuring up to 2.0 cm, AP window measuring up to 3.0 x 1.4 cm, right hilar measuring up to 3.1 cm, subcarinal measuring up to 3.7 x 2.0 cm, right bronchial measuring up to 2.7 cm, left hilar measuring up to 2.1 cm, right periaortic measuring 1.3 cm. There is slightly suboptimal contrast bolus for assessment of pulmonary embolus. Allowing for this li mitation, no definite pulmonary embolus. There is moderate centrilobular emphysema. Mild diffuse bronchial wall thickening. 1.1 x 0.3 cm nodule right mid lung along the major fissure likely intrafissural lymph node. Scattered patchy areas of probable atelectasis are noted. No consolidation or pleural effusion. Visualized upper abdomen shows a vague hypodensities in the liver measuring up to 1.1 cm, proba kerry small cysts. Bones: Moderate degenerative disc disease mid to lower thoracic spine. IMPRESSION: 1. Slightly suboptimal contrast bolus. No definite pulmonary embolus. 2. Thoracic adenopathy including axillary nodes measuring up to 2.5 cm, mediastinal nodes measuring u p to 3.7 cm, and hilar nodes measuring up to 3.1 cm. Further workup for possible lymphoma or leukemia recommended. Atypical fungal/mycobacterial infections, sarcoidosis, and metastatic disease are addit ional considerations. 3. Some left ventricular wall hypertrophy. 4. COPD with moderate emphysema.
== END | disposition home or self-care (01) ==
LOC: RADCTMAIN 15:21
PROVIDERS: ATTEND Internal Medicine
DX: R59.0 Localized enlarged lymph nodes (principal); I51.7 Cardiomegaly; J43.9 Emphysema, unspecified; D86.9 Sarcoidosis, unspecified
CPT/HCPCS: 71275; Q9967

== ENCOUNTER → 2023-09-12 | Outpatient (CLI) | payer OTHER ==
--- NOTE | 2023-09-14 02:24 | PE ---
EXAMINATION TYPE: PET CT fusion skull to thigh DATE OF EXAM: 09/12/2023 COMPARISON: CTA chest August 20, 2023 HISTORY: Chronic lymphocytic leukemia diagnosed 3 years ago, no active treatment. TECHNIQUE: Following the intravenous administration of 10.47 mCi of F-18 FDG, whole body images are performed from the skull base to the midthigh. Images are reviewed on the computer in the coronal, a xial, and sagittal planes. Reconstructed rotating images are created on independent workstation and reviewed on the computer. A localization and attenuation correction CT is performed in conjunction with the PET scan. Blood glucose level equals 87 SCAN: Subsequent Scan FINDINGS: Mean SUV mediastinum: 0.97 Mean SUV liver: 2.41 HEAD AND NECK: The majority of head included on this study. Prominent bilateral neck lymph nodes wit h mild abnormal hypermetabolic uptake bilaterally. Lymph nodes extend from skull base to the supracla vicular region. Max SUV is 3.5 on the left on axial image 61 and 3.73 on the right on axial image 54. CHEST, MEDIASTINUM, AND HILAR REGION: Enlarged bilateral mildly hypermetabolic axillary lymph nodes. The max SUV in the right axilla is 3.83 and is 4.51 in the left axilla. Enlarged mildly hypermetaboli c bilateral hilar and mediastinal lymph nodes. Max SUV right paratracheal region is 5.08 on axial akila ge 101. ABDOMEN AND PELVIS: Slightly prominent mildly hypermetabolic lymph nodes throughout the abdomen and p chato including iliac chain vessels into the bilateral groin region. The max SUV of subcentimeter lym ph node left iliac chain is 5.53 on axial image [email or web address] OSSEOUS STRUCTURES: No abnormal hypermetabolic uptake in the osseous structures OTHER CT: Mild calcified plaque of the aorta extends into branch vessels. There is large left inguina l hernia containing large portion of the colon without abnormal dilatation to suggest obstruction. Pr ostate gland is mildly enlarged in size. IMPRESSION: Slightly enlarged mildly hypermetabolic lymph nodes bilaterally above and below the diaph ragm including extensive bilateral neck involvement correlates with patient's history of CLL.
== END | disposition home or self-care (01) ==
LOC: RADPETMAIN 14:57
PROVIDERS: ATTEND Internal Medicine Hematology & Oncology
DX: C91.10 Chronic lymphocytic leukemia of B-cell type not having achieved remission (principal); R59.9 Enlarged lymph nodes, unspecified
CPT/HCPCS: 78815; A9552

== ENCOUNTER 2024-02-06 06:30 | Day surgery (SDC) | payer OTHER ==
[2024-02-06] MEDS ORDERED: DEXAMETHASONE SOD PHOSPHATE 4 MG/ML 1 ML VIAL ONE (06:57)
[2024-02-06] MEDS ORDERED: ONDANSETRON 4 MG/2 ML VIAL ONE ×2 (06:57→15:39)
[2024-02-06] MEDS ORDERED: MIDAZOLAM 2 MG/2 ML VIAL ONE (06:58)
[2024-02-06] MEDS ORDERED: HEPARIN SODIUM,PORCINE 5,000 UNIT/ML 1 ML VIAL ONE (06:58)
[2024-02-06] MEDS ORDERED: ROPIVACAINE 5 MG/ML 30 ML VIAL ONE ×2 (06:58→07:29)
[2024-02-06] MEDS ORDERED: MELOXICAM 7.5 MG TAB ONE (07:00)
[2024-02-06] MEDS ORDERED: ACETAMINOPHEN TAB 500 MG TAB ONE (07:00)
[2024-02-06] MEDS ORDERED: TAMSULOSIN 0.4 MG CAP.ER.24H PO ONE ×2 (07:04→15:32)
[2024-02-06] MEDS ORDERED: SUCCINYLCHOLINE CHLORIDE 200 MG/10 ML VIAL IV ONE (07:29)
[2024-02-06] MEDS ORDERED: SODIUM CHLORIDE 0.9% (PF) 10 ML VIAL ONE (07:29)
[2024-02-06] MEDS ORDERED: PROPOFOL 10 MG/ML 20 ML VIAL IV ONE (07:29)
[2024-02-06] MEDS ORDERED: HYDROmorphone (PF) 1 MG/ML ONE (07:29)
[2024-02-06] MEDS ORDERED: fentaNYL (PF) 50 MCG/ML 2 ML AMP ONE (07:29)
[2024-02-06] MEDS ORDERED: ROCURONIUM 10 MG/ML (5 ML VIAL) IV ONE (07:29)
[2024-02-06] MEDS ORDERED: LIDOCAINE 1% INJ 10MG/ML (20 ML MDV) ONE (07:29)
[2024-02-06] MEDS ORDERED: LACTATED RINGERS 1,000 ML BAG ONE (07:30)
[2024-02-06] MEDS ORDERED: LIDOCAINE 1%-EPI 1:100,000 20 ML VIAL ONE (07:30)
[2024-02-06] MEDS ORDERED: IBUPROFEN 600 MG TAB PO ONE (12:28)
[2024-02-06] MEDS ORDERED: HYDROcodone/APAP 5-325MG 1 EACH TAB ONE (14:31)
--- NOTE | 2024-04-15 16:59 | P.GSHP ---
History of Present Illness H&P Date: 02/06/24 CHIEF COMPLAINT: Inguinal hernia, left HISTORY OF PRESENT ILLNESS: The patient is a 63-year-old male recently diagnosed with a large left inguinal hernia found on imaging study for his newly diagnosed cancer/leukemia. Patient reports symptoms with lifting including moderate swelling along the left groin. He reports his potential chemotherapy is on hold pending repair of his inguinal hernia. Now he presents for repair of his inguinal hernia. PAST MEDICAL HISTORY: Please see list. PAST SURGICAL HISTORY: Please see list. MEDICATIONS: Please see list. ALLERGIES: Please see list. SOCIAL HISTORY: No illicit drug use FAMILY HISTORY: No reports of Crohn disease or ulcerative colitis. REVIEW OF ORGAN SYSTEMS: CONSTITUTIONAL: No fevers or chills. No recent weight loss. EYES: Denies any trouble with vision. No glasses. HEENT: No difficulties with hearing. No nosebleeds. No difficulty swallowing. RESPIRATORY: Has chronic obstructive pulmonary disease with asthma. CARDIOVASCULAR: Denies any chest pain, palpitations, or recent heart attacks. GASTROINTESTINAL: Has change in bowel habits with constipation. GENITOURINARY: Denies any blood in urine or increased urinary frequency. NEUROLOGICAL: Denies any numbness or tingling along the distal extremities. No seizure disorders or headaches. MUSCULOSKELETAL: Denies any back pain, stiffness or joint arthritis. SKIN: No current skin cancer. No rash. PSYCHIATRIC: Denies current depression or suicidal thoughts. ENDOCRINE: Denies current thyroid disorders. Denies any blood sugar glucose intolerance. HEME/LYMPHATIC: Recent diagnosis of leukemia and swelling of the lymph nodes ALLERGY/IMMUNOLOGY: No immunoglobulin therapy. No immune deficiencies. BREAST: Denies current breast lumps, pain or nipple discharge. PHYSICAL EXAM: VITAL SIGNS: Stable GENERAL: Well-developed pleasant male in no acute distress. HEENT: No scleral icterus. Extraocular movements grossly intact. Moist buccal mucosa. NECK: Supple with lymphadenopathy. CHEST: Unlabored respirations. Equal bilateral excursions. CARDIOVASCULAR: Regular rate and rhythm. Distal 2+ pulses. ABDOMEN: Soft, nondistended. No peritoneal signs. Moderate swelling of the left scrotum. MUSCULOSKELETAL: No clubbing, cyanosis, or edema. SKIN: Well-perfused good skin turgor. ASSESSMENT: 1. Inguinal hernia, left, large with incarceration bowel 2. Leukemia, newly diagnosed PLAN: 1. Recommend proceeding with a robotic inguinal repair with mesh with possible bilateral approach. 2. Benefits and risks of surgical intervention was discussed including possibility of open technique. 3. DVT prophylaxis. 4. Antibiotic prophylaxis. 5. Non narcotic pain management including abdominal wall block described 6. Blood sugar glucose described. 7. Weight loss management described. 8. CBC and CMP on day of procedure 9. Patient is elevated risk for complications due to untreated malignancy Past Medical History Past Medical History: COPD, Osteoarthritis (OA) Additional Past Medical History / Comment(s): Chronic Lymphocytic Leukemia-not currently receiving treatment. Bone marrow biopsy December 2023. History of Any Multi-Drug Resistant Organisms: None Reported Past Surgical History: Hernia Repair Additional Past Surgical History / Comment(s): Bone marrow biopsy December 2023. Hernia repair [address] Ames. Hernia repair 25 years ago. Past Anesthesia/Blood Transfusion Reactions: No Reported Reaction Past Psychological History: No Psychological Hx Reported Smoking Status: Former smoker Past Alcohol Use History: Occasional Additional Past Alcohol Use History / Comment(s): Quit smoking 2018 per patient. Occasional (rare) alcohol consumption. Past Drug Use History: None Reported - Past Family History Mother Family Medical History: Cancer Medications and Allergies Home Medications Medication Instructions Recorded Confirmed Type Fluticasone Propion/Salmeterol 1 puff PO RT-BID 02/17/24 03/01/24 History [Wixela 250-50 Inhub] traMADol HCl [Ultram] 50 mg PO TID PRN 02/17/24 03/01/24 History Albuterol Sulfate [Albuterol 1 - 2 puff PO RT-Q6H PRN 03/01/24 03/01/24 History Sulfate Hfa] Allergies Allergy/AdvReac Type Severity Reaction Status Date / Time No Known Allergies Allergy Verified 03/01/24 11:18
--- NOTE | 2024-04-15 17:14 | P.OP ---
Date of Procedure: 04/15/24 Description of Procedure: SURGEON: YEFRI TURNER MD PREOPERATIVE DIAGNOSES: 1. Initial left inguinal hernia with bowel obstruction and incarceration 2. Chronic lymphocytic leukemia 3. Enlarged lymph nodes 4. Chronic obstructive pulmonary disease 5. Gastroesophageal reflux disease 6. History of tobacco abuse disorder POSTOPERATIVE DIAGNOSES: 1. Left inguinal hernia with bowel obstruction and incarceration 2. Chronic lymphocytic leukemia 3. Enlarged lymph nodes 4. Chronic obstructive pulmonary disease 5. Gastroesophageal reflux disease 6. History of tobacco abuse disorder 7. Sigmoid diverticulosis 8. Pelvic adhesions OPERATION: 1. Robotic-assisted da Nell Xi laparoscopic reduction of incarcerated bowel and left inguinal hernia repair with mesh, 10 x [address] 2. Robotic-assisted da Nell Xi laparoscopic lysis of pelvic adhesions ANESTHESIA: General with local anesthetic ESTIMATED BLOOD LOSS: 80 mL. SPECIMENS REMOVED: Left inguinal hernia sac COMPLICATIONS: None. FINDINGS: 1. Large left inguinal hernia, 5-cm closed with fascial repair 2. Non-absorbable 2-0 VLOC used 3. No subfascial left inguinal lipoma 4. 0-vicryl and Eron escobedo used. 5. Incarcerated sigmoid colon and mesentery with omentum trapped with bowel obstruction, 4-cm defect of indirect left inguinal hernia 6. Four arms at technique used 1-12 7. Previous repair on right with adhesions lysed 8. Sigmoid diverticulosis INDICATIONS: The patient is a 63-year-old gentleman who presents with left groin pain and swelling. He has comorbidities including active malignancy chronic lymphocytic leukemia. Urgent surgical repair was sought by his providers prior to chemotherapy. Laparoscopic versus open and robotic approaches were discussed. Benefits and risks including bleeding, infection, injury to the vas deferens as well as sterility and chronic groin pain were reviewed. Placement of mesh was also described. Informed consent was obtained. DESCRIPTION: In the preoperative area, the patient was marked with indelible marker along the inguinal hernia. The patient was brought to the operating room and initially laid in supine position. The abdomen had been prepped and draped in standard sterile fashion. Ioban draping was also placed. Prior to incision, a timeout protocol was confirmed with surgical team regarding patient's name including procedures to be performed and location along the right groin. Initial positioning for the robotic assisted ports were selected whereby 20 cm superior to the target anatomy, 0 degree 5 mm laparoscopic trocar entry was performed at the left upper quadrant. The abdomen was insufflated to 15 mmHg which he had tolerated well. Diagnostic laparoscopy demonstrated an indirect inguinal hernia along the left groin with incarceration of the sigmoid colon and omentum including mesentery. Presence of sigmoid diverticulosis was found. Next, along the epigastrium, 8 mm robot trocar was placed. An 8-mm robotic trocar was placed under direct visualization at the right upper quadrant. An 8 mm port was placed at the left upper quadrant. An additional 12 mm trocar was placed along the right lateral abdominal wall for 4 trocar technique. All trocars were positioned between 10-cm apart from each other. The ED01 XI robot was primed, draped, prepared for docking along the right side of the patient. The patient was placed in Trendelenberg position 21-degrees. I then went to the ED01 Xi console. The registered dental assistant rda was at bedside for exchange of the robot arms and equipment. Adhesions along the right pelvis was found from prior hernia repair and lysed using scissors and Bovie cautery. Multiple maneuvers including pressure along the left groin and gentle retraction within the abdomen was used to carefully reduce to the large bowel contents which was extremely tight within the scrotal sac. Persistent reduction for over 5 to 10 minutes was performed with complete viability of the bowel. The left inguinal hernia sac was evaginated whereby the peritoneum was scored using Endo scissors with cautery. Once completely reduced of the bowel into the abdominal cavity and without injury or enterotomy, the peritoneal sac of the hernia was stripped along a indirect inguinal hernia sac was resected and then passed off for further pathological analysis. The size of the hernia defect was 4 cm with intraoperative films obtained. Using a nonabsorbable 2-0 VLOC, the conjoint tendon and ligament were reapproximated of the inguinal ring. The peritoneal defect of the left inguinal hernia site was closed using a pursestring suture. The defect was found to be completely closed with complete reduction of the right indirect and direct inguinal hernia. As an onlay, a 10 x [address] mesh by [employer] was entered into the abdominal cavity via the 12 mm trocar. The mesh was tacked to the pelvis using 2-0 VLOC 9-inch length sutures. The robot was undocked from the patient's bedside. I then rescrubbed into the case. Fascial defect of the 12 Cortes trocar site was closed using Eron Esocbedo and 0 Vicryl. Insufflation was released from the abdominal cavity and all instruments were removed from the abdominal cavity. The rest of incisions were reapproximated using 4-0 Monocryl in a running subcuticular fashion. Complete reduction and resolved swelling of the left scrotum and guarding was achieved at the end of the case. Incisions were cleansed using dilute hydrogen peroxide. Liquid glue was applied to the skin. At the end of the procedure, the needle, sponge and instrument counts had been verified correct by the surgical assistant certified. The patient had tolerated the procedure well and was taken to the postanesthesia care unit in stable condition.
== END 2024-02-06 17:20 ==
LOC: OR 06:30
PROVIDERS: ATTEND Surgery Plastic and Reconstructive Surgery
DX: K40.90 Unilateral inguinal hernia, without obstruction or gangrene, not specified as recurrent
CPT/HCPCS: 49650; 64999; S2900

== ENCOUNTER 2024-02-17 15:55 | Inpatient (IN) | payer OTHER ==
--- NOTE | 2024-02-17 17:07 | ED ---
General Adult HPI - General Source: patient Mode of arrival: ambulatory Limitations: no limitations <Ila Maciel - Last Filed: 02/17/24 17:06> <Eduardo Cardenas - Last Filed: 02/17/24 21:01> - General Chief complaint: Recheck/Abnormal Lab/Rx Stated complaint: Hernia-Post op Time Seen by Provider: 02/17/24 17:06 - History of Present Illness Initial comments: 63-year-old male, patient had hernia repair surgery with Dr. Amse on 02/05. Last night he felt the hernia "dropped down". He denies any pain he just notices the increased pressure. No vomiting. Normal bowel movements. (Ila Maciel) Dictation was produced using [email or web address] dictation software. please excuse any grammatical, word or spelling errors. Chief Complaint: 63-year-old male presents to the emergency department with right inguinal hernia History of Present Illness: Patient 63-year-old male he had hernia repair on February [address] Ames. Last night he was feeling at baseline when all of a sudden he felt that his hernia recurred in his left groin. States that initially there was a lot of bowel in the scrotum. Was repaired and not had recurred. Patient denies any pain. Denies any nausea vomiting. He still able to pass gas and eat. The ROS documented in this emergency department record has been reviewed and confirmed by me. Those systems with pertinent positive or negative responses have been documented in the HPI. All other systems are other negative and/or noncontributory. (Eduardo Cardenas) - Related Data Home Medications Medication Instructions Recorded Confirmed Fluticasone Propion/Salmeterol 1 puff PO RT-BID 02/17/24 02/17/24 [Wixela 250-50 Inhub] traMADol HCl [Ultram] 50 mg PO TID PRN 02/17/24 02/17/24 Allergies Allergy/AdvReac Type Severity Reaction Status Date / Time No Known Allergies Allergy Verified 02/17/24 18:17 Review of Systems ROS Other: All systems not noted in ROS Statement are negative. <Ila Maciel - Last Filed: 02/17/24 17:06> ROS Other: All systems not noted in ROS Statement are negative. <Eduardo Cardenas - Last Filed: 02/17/24 21:01> ROS Statement: Those systems with pertinent positive or pertinent negative responses have been documented in the HPI. Past Medical History Past Medical History: COPD, Osteoarthritis (OA) Additional Past Medical History / Comment(s): Chronic Lymphocytic Leukemia, currently in remission, not currently receiving treatment History of Any Multi-Drug Resistant Organisms: None Reported Past Surgical History: Hernia Repair Past Anesthesia/Blood Transfusion Reactions: No Reported Reaction Past Psychological History: No Psychological Hx Reported Smoking Status: Former smoker Past Alcohol Use History: Occasional Past Drug Use History: None Reported - Past Family History Mother Family Medical History: Cancer <Ila Maciel - Last Filed: 02/17/24 17:06> General Exam Limitations: no limitations <Ila Maciel - Last Filed: 02/17/24 17:06> <Eduardo Cardenas - Last Filed: 02/17/24 21:01> - General Exam Comments Initial Comments: Visual Physical Exam Vital signs reviewed General: Well-appearing, nontoxic, no acute distress. Head: Normocephalic, atraumatic Eyes: PERRLA, EOMI ENT: Airway patent Chest: Nonlabored breathing Skin: No visual rash, normal skin tone Neuro: Alert and oriented 3 Musculoskeletal: No gross abnormalities (Ila Maciel) PHYSICAL EXAM: General Impression: Alert and oriented x3, not in acute distress HEENT: Normocephalic atraumatic, extra-ocular movements intact, pupils equal and reactive to light bilaterally, mucous membranes moist. Cardiovascular: Heart regular rate and rhythm Chest: Able to complete full sentences, no retractions, no tachypnea Abdomen: abdomen soft, non-tender, non-distended, no organomegaly large left inguinal hernia with bowel contents in the scrotum Musculoskeletal: Pulses present and equal in all extremities, no peripheral edema Motor: no focal deficits noted Neurological: CN II-XII grossly intact, no focal motor or sensory deficits noted Skin: Intact with no visualized rashes Psych: Normal affect and mood (Eduardo Cardenas) Course <Eduardo Cardenas - Last Filed: 02/17/24 21:01> Vital Signs 02/17/24 02/17/24 16:00 20:46 Temperature 97.8 F Pulse Rate 71 79 Respiratory 18 18 Rate Blood Pressure 129/83 128/81 O2 Sat by Pulse 100 95 Oximetry - Reevaluation(s) Reevaluation #1: 02/17/24 17:41 Patient care discussed with Dr. Roman at 5:40 PM recommended imaging studies. Document fall is out of town and Dr. Roman is covering. (Eduardo Cardenas) Medical Decision Making <Ila Maciel - Last Filed: 02/17/24 17:06> - Lab Data Result diagrams: 02/17/24 17:32 02/17/24 17:32 <Eduardo Cardenas - Last Filed: 02/17/24 21:01> - Medical Decision Making I performed the quick note portion of this visit, electronically signed Ila Maciel PA-C (Ila Maciel) Was pt. sent in by a medical professional or institution ([facility], [facility], urgent care, hospital, or fpc...) When possible be specific @ -No Did you speak to anyone other than the patient for history (EMS, parent, family, police, friend...)? What history was obtained from this source @ - states patient has a hernia Did you review nursing and triage notes (agree or disagree)? Why? @ -I reviewed and agree with nursing and triage notes Were old charts reviewed (outside hosp., previous admission, EMS record, old EKG, old radiological studies, urgent care reports/EKG's, fpc records)? Report findings @ -No old charts were reviewed Differential Diagnosis (chest pain, altered mental status, abdominal pain women, abdominal pain men, vaginal bleeding, musculoskeletal, weakness, fever, dyspnea, syncope, headache, dizziness, GI bleed, back pain, seizure, CVA, palpatations, mental health)? @ -Differential Abdominal Pain Men: Appendicitis, cholecystitis, diverticulosis, ischemic bowel, pancreatitis, hepatitis, UTI, gastroenteritis, AAA, incarcerated hernia, bowel obstruction, constipation, inflammatory bowel, hepatitis, peptic ulcer disease, splenic infarction, perforated viscus, testicular torsion, this is not meant to be an all-inclusive list EKG interpreted by me (3pts min.). @ -None done X-rays interpreted by me (1pt min.). @ -None done CT interpreted by me (1pt min.). @ -CT shows inguinal hernia U/S interpreted by me (1pt. min.). @ -None done What testing was considered but not performed or refused? (CT, X-rays, U/S, labs)? Why? @ -None What meds were considered but not given or refused? Why? @ -None Was smoking cessation discussed for >3mins.? @ -No Were there social determinants of health that impacted care today? How? (Homelessness, low income, unemployed, alcoholism, drug addiction, transport ation, low edu. Level, literacy, decrease access to med. care, correction, rehab)? @ -No Was there de-escalation of care discussed even if they declined (Discuss DNR or withdrawal of care, Hospice)? DNR status @ -No What co-morbidities impacted this encounter? (DM, HTN, Smoking, COPD, CAD, Cancer, CVA, ARF, Chemo, Hep., AIDS, mental health diagnosis, sleep apnea, morbid obesity)? @ -None Was patient admitted / discharged? Hospital course, mention meds given and route, prescriptions, significant lab abnormalities, going to OR and other pertinent info. @ -63-year-old male presents to the emergency department for failed hernia repair performed 10 days ago. Vital signs upon arrival acceptable limits. Patient well-appearing. Shows inguinal hernia with decompressed bowel in the scrotum. Case discussed with Dr. Brannon who request patient be admitted with plans of repair tomorrow Did you discuss the management of the patient with other professionals (professionals i.e. , PA, WE[employer], lab, RT, psych nurse, social work assistant, combine mechanic, teacher, quarantine officer, child welfare caseworker)? Give summary @ -See above Was critical care preformed (if so, how long)? @ -No Undiagnosed new problem with uncertain prognosis? @ -No Drug Therapy requiring intensive monitoring for toxicity (Heparin, Nitro, Insulin, Cardizem)? @ -No Were any procedures done? @ -No Diagnosis/symptom? Acute, or Chronic, or Acute on Chronic? Uncomplicated (without systemic symptoms) or Complicated (systemic symptoms)? @ -Hernia Side effects of treatment? @ -No Exacerbation, Progression, or Severe Exacerbation? @ -No Poses a threat to life or bodily function? How? (Chest pain, USA, PA, pneumonia, PE, COPD, DKA, ARF, appy, cholecystitis, CVA, Diverticulitis, Homicidal, Suicidal, threat to staff... and all critical care pts) @ -yes (Eduardo Cardenas) - Lab Data Lab Results 02/17/24 02/17/24 Range/Units 17:32 17:32 WBC 19.9 H (3.8-10.6) k/uL RBC 3.41 L (4.30-5.90) m/uL Hgb 11.9 L (13.0-17.5) gm/dL Hct 35.5 L (39.0-53.0) % MCV 104.2 H (80.0-100.0) fL MCH 34.8 (25.0-35.0) pg MCHC 33.4 (31.0-37.0) g/dL RDW 14.7 (11.5-15.5) % Plt Count 248 (150-450) k/uL MPV 7.9 Neutrophils % (Manual) 4 % Lymphocytes % (Manual) 96 % Neutrophils # (Manual) 0.80 L (1.3-7.7) k/uL Lymphocytes # (Manual) 19.10 H (1.0-4.8) k/uL Nucleated RBCs 0 (0-0) /100 WBC Manual Slide Review Performed Macrocytosis Moderate Sodium 136 L (137-145) mmol/L Potassium 4.9 (3.5-5.1) mmol/L Chloride 102 (98-107) mmol/L Carbon Dioxide 25 (22-30) mmol/L Anion Gap 9 mmol/L BUN 17 (9-20) mg/dL Creatinine 0.85 (0.66-1.25) mg/dL Est GFR (CKD-EPI)AfAm >90 (>60 ml/min/1.73 sqM) Est GFR (CKD-EPI)NonAf >90 (>60 ml/min/1.73 sqM) Glucose 97 (74-99) mg/dL Calcium 9.4 (8.4-10.2) mg/dL Total Bilirubin 0.7 (0.2-1.3) mg/dL AST 26 (17-59) U/L ALT 43 (4-49) U/L Alkaline Phosphatase 64 (38-126) U/L Total Protein 6.7 (6.3-8.2) g/dL Albumin 4.4 (3.5-5.0) g/dL Disposition <Ila Maciel - Last Filed: 02/17/24 17:06> Decision Time: 21:01 <Eduardo Cardenas - Last Filed: 02/17/24 21:01> Clinical Impression: Hernia Disposition: ADMITTED IP TO THIS [facility] Condition: Fair Referrals: Napoleon Mendieta DO [Primary Care Provider] - 1-2 days
[2024-02-17 17:47] LABS: HCT 35.5 % (39.0-53.0); HGB 11.9 gm/dL (13.0-17.5); MCH 34.8 pg (25.0-35.0); MCHC 33.4 g/dL (31.0-37.0); MCV 104.2 fL (80.0-100.0); Macrocytosis Moderate; Mean Platelet Volume 7.9; Platelet Count 248 k/uL (150-450); RBC 3.41 m/uL (4.30-5.90); RDW 14.7 % (11.5-15.5); WBC 19.9 k/uL (3.8-10.6)
[2024-02-17 17:55] LABS: ALT 43 U/L (4-49); AST 26 U/L (17-59); African American GFR (CKD) >90 (>60 ml/min/1.73 sqM); Albumin 4.4 g/dL (3.5-5.0); Alkaline Phosphatase 64 U/L (38-126); Anion Gap 9 mmol/L; Blood Urea Nitrogen 17 mg/dL (9-20); Calcium 9.4 mg/dL (8.4-10.2); Carbon Dioxide 25 mmol/L (22-30); Chloride 102 mmol/L (98-107); Glucose 97 mg/dL (74-99); Non-African American GFR(CKD) >90 (>60 ml/min/1.73 sqM); Potassium 4.9 mmol/L (3.5-5.1); Sodium 136 mmol/L (137-145); Total Bilirubin 0.7 mg/dL (0.2-1.3); Total Protein 6.7 g/dL (6.3-8.2)
[2024-02-17 18:31] LABS: Neutrophils % (M) 4 %; Nucleated Red Blood Cells 0 /100 WBC (0-0); Total Cells Counted 100
--- NOTE | 2024-02-17 20:40 | CT ---
EXAMINATION TYPE: CT abdomen pelvis w con DATE OF EXAM: 02/17/2024 COMPARISON: PET/CT 09/12/2023 INDICATION: Pt had hernia repair surgery on 02/05. States he felt it "drop down" last night and is con cerned the mesh has moved DLP: 953.6 mGycm, Automated exposure control for dose reduction was used. CONTRAST: 100 ml mL of Isovue 300. Study performed without Oral Contrast TECHNIQUE: Axial images were obtained from above the diaphragm to the pubic rami in the axial plane a t 5 mm thick sections. Reconstructed images are reviewed on the computer in the coronal plane. FINDINGS: Limited CT sections are obtained the lung bases. The lung bases are clear. CT ABDOMEN: Liver: Scattered hepatic cysts are present. Spleen: Normal Pancreas: Normal Adrenal glands: The adrenal glands are normal. Gallbladder: Normal Kidneys: No masses are evident. No hydronephrosis is present. No cysts are present. Delayed images were obtained through the kidneys, which remain unremarkable. Aorta: Normal Inferior vena cava: Normal. CT PELVIS: There is a left inguinal hernia containing fluid. There may be some debris within the enla rged hernia sac left hemiscrotal area. Decompressed loops of bowel may be involved. Loops of bowel within the abdomen and pelvis are normal. This study is a lateral oral contrast li miting pelvic evaluation. No dilated obstructed bowel is evident. Appendix: Normal as visualized. Urinary bladder: Normal. Genitourinary structures: Prostate is unremarkable Osseous structures: No suspicious lytic or sclerotic lesions. IMPRESSION: 1. Left inguinal hernia which may contain decompressed loops of bowel. No obstruction is identified.
[2024-02-17] MEDS ORDERED: NALOXONE 0.4 MG/ML 1 ML VIAL IV PRN (20:57)
[2024-02-17] MEDS ORDERED: ACETAMINOPHEN TAB 325 MG TAB PO PRN (20:57)
[2024-02-17] MEDS: SODIUM CHLORIDE 0.9% 1,000 ML IV SCH (21:27)
[2024-02-18] MEDS ORDERED: HYDROmorphone 1 MG/ML 1 ML SYRINGE IVP PRN (08:09)
[2024-02-18 09:12] VITALS: BP 126/76; PULSE 76; RESP 16; TEMP 98.6
--- NOTE | 2024-02-18 10:46 | P.GSHP ---
History of Present Illness H&P Date: 02/18/24 CHIEF COMPLAINT: Recurrent left inguinal hernia HISTORY OF PRESENT ILLNESS: This is a 63-year-old male who is status post left inguinal hernia repair with Dr. Ames on February 05. Patient reports that he had been doing well and then 2 nights ago he noted recurrence of the left inguinal hernia. The hernia appeared when he was getting out of bed. Patient denies any pain. He reports that he was able to partially reduce the hernia on his own but then the hernia reoccurred. Patient reports being able to have bowel movements and flatus. Denies any difficulty urinating. Patient does have a history of chronic lymphocytic leukemia. PAST MEDICAL HISTORY: COPD, chronic lymphocytic leukemia PAST SURGICAL HISTORY: See below MEDICATIONS: See below ALLERGIES: See below SOCIAL HISTORY: No illicit drug use. REVIEW OF SYSTEMS: CONSTITUTIONAL: Denies fever or chills. HEENT: Denies blurred vision, vision changes, or eye pain. Denies hemoptysis CARDIOVASCULAR: Denies chest pain or pressure. RESPIRATORY: No shortness of breath. GASTROINTESTINAL: See HPI for pertinent findings HEMATOLOGIC: Denies bleeding disorders. GENITOURINARY: Denies any blood in urine or increased urinary frequency. SKIN: Denies pruitis. Denies rash. PHYSICAL EXAM: VITAL SIGNS: Reviewed GENERAL: Well-developed in no acute distress. HEENT: No sclera icterus. Extraocular movements grossly intact. Moist buccal mucosa. Head is atraumatic, normocephalic. No nasal drainage. ABDOMEN: Soft. Nondistended. Nontender. Large left inguinal hernia with bowel in the scrotum. Unable to reduce. NEUROLOGIC: Alert and oriented. Cranial nerves II through XII grossly intact. LABORATORY DATA: WBC 19.9 Hgb 11.9 platelets 248 Sodium 136 potassium 4.9 creatinine 0.85 IMAGING: CT scan abdomen pelvis reports left inguinal hernia which may contain decompressed loops of bowel. No obstruction is identified. ASSESSMENT: 1. Recurrent large left inguinal hernia PLAN: -Patient scheduled for open repair of recurrent incarcerated left inguinal hernia with mesh today with Dr. Brannon -Keep patient n.p.o. -Continue IV fluids -Continue pain management Physician College Coach note has been reviewed by physician. Signing provider agrees with the documented findings, assessment, and plan of care. Past Medical History Past Medical History: COPD, Osteoarthritis (OA) Additional Past Medical History / Comment(s): Chronic Lymphocytic Leukemia-not currently receiving treatment. Bone marrow biopsy December 2023. History of Any Multi-Drug Resistant Organisms: None Reported Past Surgical History: Hernia Repair Additional Past Surgical History / Comment(s): Bone marrow biopsy December 2023. Hernia repair [address] Ames. Hernia repair 25 years ago. Past Anesthesia/Blood Transfusion Reactions: No Reported Reaction Past Psychological History: No Psychological Hx Reported Smoking Status: Former smoker Past Alcohol Use History: Occasional Additional Past Alcohol Use History / Comment(s): Quit smoking 2018 per patient. Occasional (rare) alcohol consumption. Past Drug Use History: None Reported - Past Family History Mother Family Medical History: Cancer Medications and Allergies Home Medications Medication Instructions Recorded Confirmed Type Fluticasone Propion/Salmeterol 1 puff PO RT-BID 02/17/24 02/17/24 History [Wixela 250-50 Inhub] traMADol HCl [Ultram] 50 mg PO TID PRN 02/17/24 02/17/24 History Allergies Allergy/AdvReac Type Severity Reaction Status Date / Time No Known Allergies Allergy Verified 02/17/24 18:17 Surgical - Exam Vital Signs Temp Pulse Resp BP Pulse Ox 97.8 F 71 18 129/83 100 02/17/24 16:00 02/17/24 16:00 02/17/24 16:00 02/17/24 16:00 02/17/24 16:00 Results - Labs 02/17/24 17:32 02/17/24 17:32 Abnormal Lab Results - Last 24 Hours (Table) 02/17/24 02/17/24 Range/Units 17:32 17:32 WBC 19.9 H (3.8-10.6) k/uL RBC 3.41 L (4.30-5.90) m/uL Hgb 11.9 L (13.0-17.5) gm/dL Hct 35.5 L (39.0-53.0) % MCV 104.2 H (80.0-100.0) fL Neutrophils # (Manual) 0.80 L (1.3-7.7) k/uL Lymphocytes # (Manual) 19.10 H (1.0-4.8) k/uL Sodium 136 L (137-145) mmol/L Diabetes panel 02/17/24 Range/Units 17:32 Sodium 136 L (137-145) mmol/L Potassium 4.9 (3.5-5.1) mmol/L Chloride 102 (98-107) mmol/L Carbon Dioxide 25 (22-30) mmol/L BUN 17 (9-20) mg/dL Creatinine 0.85 (0.66-1.25) mg/dL Glucose 97 (74-99) mg/dL Calcium 9.4 (8.4-10.2) mg/dL AST 26 (17-59) U/L ALT 43 (4-49) U/L Alkaline Phosphatase 64 (38-126) U/L Total Protein 6.7 (6.3-8.2) g/dL Albumin 4.4 (3.5-5.0) g/dL Calcium panel 02/17/24 Range/Units 17:32 Calcium 9.4 (8.4-10.2) mg/dL Albumin 4.4 (3.5-5.0) g/dL Pituitary panel 02/17/24 Range/Units 17:32 Sodium 136 L (137-145) mmol/L Potassium 4.9 (3.5-5.1) mmol/L Chloride 102 (98-107) mmol/L Carbon Dioxide 25 (22-30) mmol/L BUN 17 (9-20) mg/dL Creatinine 0.85 (0.66-1.25) mg/dL Glucose 97 (74-99) mg/dL Calcium 9.4 (8.4-10.2) mg/dL Adrenal panel 02/17/24 Range/Units 17:32 Sodium 136 L (137-145) mmol/L Potassium 4.9 (3.5-5.1) mmol/L Chloride 102 (98-107) mmol/L Carbon Dioxide 25 (22-30) mmol/L BUN 17 (9-20) mg/dL Creatinine 0.85 (0.66-1.25) mg/dL Glucose 97 (74-99) mg/dL Calcium 9.4 (8.4-10.2) mg/dL Total Bilirubin 0.7 (0.2-1.3) mg/dL AST 26 (17-59) U/L ALT 43 (4-49) U/L Alkaline Phosphatase 64 (38-126) U/L Total Protein 6.7 (6.3-8.2) g/dL Albumin 4.4 (3.5-5.0) g/dL
[2024-02-18 11:36] LABS: HCT 32.6 % (39.0-53.0); HGB 10.6 gm/dL (13.0-17.5); MCH 34.8 pg (25.0-35.0); MCHC 32.6 g/dL (31.0-37.0); MCV 106.7 fL (80.0-100.0); Macrocytosis Moderate; Mean Platelet Volume 8.8; Platelet Count 223 k/uL (150-450); RBC 3.05 m/uL (4.30-5.90); RDW 15.2 % (11.5-15.5); WBC 14.4 k/uL (3.8-10.6)
--- NOTE | 2024-02-18 12:31 | P.DS ---
Providers Date of admission: 02/17/24 20:58 Expected date of discharge: 02/18/24 Attending physician: Javan Brannon Primary care physician: Napoleon Mendieta Hospital Course: Discharge diagnosis 1. Left inguinal seroma 2. Status post recent left inguinal hernia repair Hospital course This is a 63-year-old male who is status post left inguinal hernia repair with Dr. Ames on February 05. Patient presented to the hospital with concerns for possible recurrence of the left inguinal hernia. Initial CT scan did read as left inguinal hernia which may contain decompressed loops of bowel. No obstruction identified. Patient was examined by Dr. Brannon who felt that this was an inguinal hernia. He then then discussed case with radiologist who added a correction addendum to the CAT scan. Now CAT scan reported left inguinal hernia that does not demonstrate loops of bowel within the hernia sac. There is a large amount of fluid extending along the inguinal canal. Patient does not have a reoccurrence of the left inguinal hernia and is dealing with a left inguinal seroma. No surgical intervention is planned. He is stable for discharge. And he will follow-up with Dr. Ames in the office. Please refer to chart for any further details. Physician Ticket Scheduler note has been reviewed by physician. Signing provider agrees with the documented findings, assessment, and plan of care. Patient Condition at Discharge: Stable Plan - Discharge Summary Discharge Rx Participant: Yes New Discharge Prescriptions: Continue traMADol HCl [Ultram] 50 mg PO TID PRN PRN Reason: Pain Fluticasone Propion/Salmeterol [Wixela 250-50 Inhub] 1 puff PO RT-BID Discharge Medication List Fluticasone Propion/Salmeterol [Wixela 250-50 Inhub] 1 puff PO RT-BID 02/17/24 [History] traMADol HCl [Ultram] 50 mg PO TID PRN 02/17/24 [History] Follow up Appointment(s)/Referral(s): Napoleon Mendieta DO [Primary Care Provider] - 1-2 days Mya Ames MD [STAFF PHYSICIAN] - 1 Week Discharge Disposition: HOME SELF-CARE
[2024-02-18 13:40] LABS: Lymphocytes # (M) 12.96 k/uL (1.0-4.8); Monocytes # (M) 0.72 k/uL (0-1.0); Neutrophils # (M) 0.72 k/uL (1.3-7.7); Neutrophils % (M) 5 %; Nucleated Red Blood Cells 0 /100 WBC (0-0); Total Cells Counted 200
== END 2024-02-18 13:50 | disposition home or self-care (01) | DRG 921 ==
LOC: EC 15:55 → 5NMEDONC 20:58
PROVIDERS: ADMIT Surgery; ATTEND Surgery
DX: K91.872 Postprocedural seroma of a digestive system organ or structure following a digestive system procedure (principal); J44.9 Chronic obstructive pulmonary disease, unspecified; Z87.891 Personal history of nicotine dependence; M19.90 Unspecified osteoarthritis, unspecified site; Z85.6 Personal history of leukemia; Z79.899 Other long term (current) drug therapy
CPT/HCPCS: 96360; 96361; 99285

== ENCOUNTER 2024-03-01 09:24 | Observation (INO) | payer OTHER ==
[2024-03-01 09:31] VITALS: RESP 18
[2024-03-01] MEDS ORDERED: NALOXONE 0.4 MG/ML 1 ML VIAL IV PRN (10:26)
[2024-03-01] MEDS ORDERED: ACETAMINOPHEN TAB 325 MG TAB PO PRN (10:26)
--- NOTE | 2024-03-01 10:26 | ED ---
General Adult HPI - General Chief complaint: Recheck/Abnormal Lab/Rx Stated complaint: Abn Labs Time Seen by Provider: 03/01/24 09:35 Source: patient Mode of arrival: ambulatory Limitations: no limitations - History of Present Illness Initial comments: 63-year-old male with past medical history of inguinal hernia repair on February 05 who presents to the emergency department under the direction of Dr. Ames. Patient has a seroma. She reports that she needs to perform surgery on the patient. He admits that he has a lot of swelling. Denies having much pain. Patient was hospitalized for the same complaint and discharged on the . He did see her in office last week. She called in this morning and told him to go to the hospital for admission. He denies any urinary complaints. - Related Data Home Medications Medication Instructions Recorded Confirmed Fluticasone Propion/Salmeterol 1 puff PO RT-BID 02/17/24 03/01/24 [Wixela 250-50 Inhub] traMADol HCl [Ultram] 50 mg PO TID PRN 02/17/24 03/01/24 Albuterol Sulfate [Albuterol 1 - 2 puff PO RT-Q6H PRN 03/01/24 03/01/24 Sulfate Hfa] Allergies Allergy/AdvReac Type Severity Reaction Status Date / Time No Known Allergies Allergy Verified 03/01/24 11:18 Review of Systems ROS Statement: Those systems with pertinent positive or pertinent negative responses have been documented in the HPI. ROS Other: All systems not noted in ROS Statement are negative. Past Medical History Past Medical History: COPD, Osteoarthritis (OA) Additional Past Medical History / Comment(s): Chronic Lymphocytic Leukemia-not currently receiving treatment. Bone marrow biopsy December 2023. History of Any Multi-Drug Resistant Organisms: None Reported Past Surgical History: Hernia Repair Additional Past Surgical History / Comment(s): Bone marrow biopsy December 2023. Hernia repair [address] Ames. Hernia repair 25 years ago. Past Anesthesia/Blood Transfusion Reactions: No Reported Reaction Past Psychological History: No Psychological Hx Reported Smoking Status: Former smoker Past Alcohol Use History: Occasional Past Drug Use History: None Reported - Past Family History Mother Family Medical History: Cancer General Exam Limitations: no limitations General appearance: alert, in no apparent distress Head exam: Present: atraumatic, normocephalic, normal inspection Eye exam: Present: normal appearance, PERRL, EOMI. Absent: scleral icterus, conjunctival injection, periorbital swelling ENT exam: Present: normal exam, mucous membranes moist Neck exam: Present: normal inspection. Absent: tenderness, meningismus, lymphadenopathy Respiratory exam: Present: normal lung sounds bilaterally. Absent: respiratory distress, wheezes, rales, rhonchi, stridor Cardiovascular Exam: Present: regular rate, normal rhythm, normal heart sounds. Absent: systolic murmur, diastolic murmur, rubs, gallop, clicks GI/Abdominal exam: Present: soft, normal bowel sounds. Absent: distended, tenderness, guarding, rebound, rigid Extremities exam: Present: normal inspection, full ROM, normal capillary refill. Absent: tenderness, pedal edema, joint swelling, calf tenderness Back exam: Present: normal inspection Neurological exam: Present: alert, oriented X3, CN II-XII intact Psychiatric exam: Present: normal affect, normal mood Skin exam: Present: warm, dry, intact, normal color. Absent: rash Course Vital Signs 03/01/24 03/01/24 03/01/24 09:28 13:23 14:50 Temperature 97.9 F 98.1 F 98.1 F Pulse Rate 78 76 74 Respiratory 18 18 18 Rate Blood Pressure 122/77 137/70 130/78 O2 Sat by Pulse 97 97 95 Oximetry 03/01/24 03/01/24 17:50 18:02 Temperature 97.9 F 98.4 F Pulse Rate 70 73 Respiratory 18 18 Rate Blood Pressure 122/68 126/77 O2 Sat by Pulse 100 95 Oximetry - Reevaluation(s) Reevaluation #1: Spoke with Dr. Ames. Requesting ultrasound and CBC. Patient will be admitted to her service 03/01/24 10:25 Medical Decision Making - Medical Decision Making Was pt. sent in by a medical professional or institution (, PA, [employer] MANAGER ARCHITECT, urgent care, hospital, or care home...) When possible be specific @ -Patient was sent in by Dr. Ames Did you speak to anyone other than the patient for history (EMS, parent, family, police, friend...)? What history was obtained from this source @ -I spoke with Dr. Melgar who told me to admit the patient to her Did you review nursing and triage notes (agree or disagree)? Why? @ -I reviewed and agree with nursing and triage notes Were old charts reviewed (outside hosp., previous admission, EMS record, old EKG, old radiological studies, urgent care reports/EKG's, care home records)? Report findings @ -No old charts were reviewed Differential Diagnosis (chest pain, altered mental status, abdominal pain women, abdominal pain men, vaginal bleeding, weakness, fever, dyspnea, syncope, headache, dizziness, GI bleed, back pain, seizure, CVA, palpatations, mental health, musculoskeletal)? @ -Differential Abdominal Pain Men: Appendicitis, cholecystitis, diverticulosis, ischemic bowel, pancreatitis, hepatitis, UTI, gastroenteritis, AAA, incarcerated hernia, bowel obstruction, constipation, inflammatory bowel, hepatitis, peptic ulcer disease, splenic infarction, perforated viscus, testicular torsion, this is not meant to be an all-inclusive list EKG interpreted by me (3pts min.). @ -Not done X-rays interpreted by me (1pt min.). @ -None done CT interpreted by me (1pt min.). @ -None done U/S interpreted by me (1pt. min.). @ -None done What testing was considered but not performed or refused? (CT, X-rays, U/S, labs)? Why? @ -None What meds were considered but not given or refused? Why? @ -None Did you discuss the management of the patient with other professionals (professionals i.e. , PA, [employer] MA[employer]GER ARCHITECT, lab, RT, psych nurse, social worker clinical, emergency vehicle operator, teacher, penal officer, rn case mgr)? Give summary @ -Spoke with Dr. Saab and told her that the patient she send CT emergency department did make it in Was smoking cessation discussed for >3mins.? @ -No Was critical care preformed (if so, how long)? @ -No Were there social determinants of health that impacted care today? How? (Home lessness, low income, unemployed, alcoholism, drug addiction, transportation, low edu. Level, literacy, decrease access to med. care, senior living, rehab)? @ -No Was there de-escalation of care discussed even if they declined (Discuss DNR or withdrawal of care, Hospice)? DNR status @ -No What co-morbidities impacted this encounter? (DM, HTN, Smoking, COPD, CAD, Cancer, CVA, ARF, Chemo, Hep., AIDS, mental health diagnosis, sleep apnea, morbid obesity)? @ -None Was patient admitted / discharged? Hospital course, mention meds given and route, prescriptions, significant lab abnormalities, going to OR and other pertinent info. @ -Upon arrival patient seen and evaluated in room 32. Thorough history and physical exam was performed. He was sent into the emergency department by Dr. Ames for admission. I did call her to state the patient did make it to the ER. He will be admitted to our service Undiagnosed new problem with uncertain prognosis? @ -No Drug Therapy requiring intensive monitoring for toxicity (Heparin, Nitro, Insulin, Cardizem)? @ -No Were any procedures done? @ -No Diagnosis/symptom? @ -Acute abdominal pain, acute seroma Acute, or Chronic, or Acute on Chronic? @ -Acute Uncomplicated (without systemic symptoms) or Complicated (systemic symptoms)? @ -Complicated Side effects of treatment? @ -No Exacerbation, Progression, or Severe Exacerbation? @ -No Poses a threat to life or bodily function? How? (Chest pain, [place], [place], pneumonia, PE, COPD, DKA, ARF, appy, cholecystitis, CVA, Diverticulitis, Homicidal, Suicidal, threat to staff... and all critical care pts) @ -No - Lab Data Result diagrams: 03/01/24 10:33 03/01/24 10:33 Disposition Clinical Impression: Groin pain Disposition: ADMITTED IP TO THIS [facility] Condition: Stable Is patient prescribed a controlled substance at d/c from ED?: No Time of Disposition: 10:26 Decision to Admit Reason: Admit from EC Decision Date: 03/01/24 Decision Time: 10:26
[2024-03-01] MEDS: SODIUM CHLORIDE 0.9% 1,000 ML IV SCH (10:36)
[2024-03-01 10:55] LABS: ALT 16 U/L (4-49); AST 21 U/L (17-59); African American GFR (CKD) >90 (>60 ml/min/1.73 sqM); Albumin 3.8 g/dL (3.5-5.0); Alkaline Phosphatase 56 U/L (38-126); Anion Gap 4 mmol/L; Blood Urea Nitrogen 17 mg/dL (9-20); Calcium 9.1 mg/dL (8.4-10.2); Carbon Dioxide 29 mmol/L (22-30); Chloride 108 mmol/L (98-107); Glucose 99 mg/dL (74-99); Non-African American GFR(CKD) >90 (>60 ml/min/1.73 sqM); Potassium 4.6 mmol/L (3.5-5.1); Sodium 141 mmol/L (137-145); Total Bilirubin 0.5 mg/dL (0.2-1.3); Total Protein 6.1 g/dL (6.3-8.2)
[2024-03-01 11:20] LABS: HCT 34.4 % (39.0-53.0); HGB 11.5 gm/dL (13.0-17.5); MCH 34.5 pg (25.0-35.0); MCHC 33.3 g/dL (31.0-37.0); MCV 103.4 fL (80.0-100.0); Macrocytosis Slight; Mean Platelet Volume 7.6; Platelet Count 205 k/uL (150-450); RBC 3.33 m/uL (4.30-5.90); RDW 14.9 % (11.5-15.5); WBC 21.5 k/uL (3.8-10.6)
--- NOTE | 2024-03-01 11:39 | US ---
EXAMINATION TYPE: US scrotum with doppler. Grayscale and color Doppler Duplex imaging performed of oliva masters scrotum. DATE OF EXAM: 03/01/2024 COMPARISON: NONE CLINICAL INDICATION: Male, 63 years old with history of groin swelling; Left groin swelling patient h ad hernia surgery on 02/05/2025 EXAM MEASUREMENTS: TESTICLES: Right Testicle: 4.5 x 2.7 x 3.8 cm Left Testicle: 3.9 x 2.3 x 2.9 cm EPIDIDYMIS HEAD: Right Epididymis: 1.2 x 1.4 x 1.6 cm Multiple cystic areas seen. Left Epididymis: 1.4 x 1.2 x 2.0 cm Doppler performed to assess for testicular vascularity; good bilateral color flow and waveforms are s een. There is no evidence of testicular torsion. Presence of hydroceles: yes bilateral Presence of varicoceles: no Complex fluid area seen superior to left testicle measuring 5.9 x 4.2 x 6.1 cm. IMPRESSION: 1. Multiple right epididymal head cysts. 2.Complex fluid area seen superior to left testicle measuring 5.9 x 4.2 x 6.1 cm.
[2024-03-01 13:54] LABS: Stomatocytes Present
[2024-03-01] MEDS ORDERED: HYDROmorphone 1 MG/ML 1 ML SYRINGE IVP PRN (14:07)
--- NOTE | 2024-03-01 14:10 | P.GSHP ---
History of Present Illness H&P Date: 03/01/24 CHIEF COMPLAINT: Left scrotal swelling HISTORY OF PRESENT ILLNESS: The patient is a 63-year-old male seen and evaluated. Patient developed a very large tense fluid-filled seroma of the left groin confirmed via ultrasound. Patient had a large complicated left left inguinal hernia repair 3 weeks prior. He has personal history of chronic lymphocytic leukemia which is affecting his recovery. He reports moderate pain and discomfort since his presentation to the emergency room. PAST MEDICAL HISTORY: See list and reviewed PAST SURGICAL HISTORY: See list and reviewed MEDICATIONS: See list and reviewed ALLERGIES: See list and reviewed SOCIAL HISTORY: See list and reviewed FAMILY HISTORY: See list and reviewed REVIEW OF ORGAN SYSTEMS: CONSTITUTIONAL: No fevers or chills. No recent weight loss. EYES: Denies any trouble with vision. No glasses. HEENT: No difficulties with hearing. No nosebleeds. No difficulty swallowing. RESPIRATORY: Has chronic obstructive pulmonary disease. CARDIOVASCULAR: Denies any chest pain, palpitations, or recent heart attacks. GASTROINTESTINAL: Has gastroesophageal reflux disease GENITOURINARY: Denies any blood in urine or increased urinary frequency. NEUROLOGICAL: Denies any numbness or tingling along the distal extremities. No seizure disorders or headaches. MUSCULOSKELETAL: Denies any back pain, stiffness or joint arthritis. SKIN: No current skin cancer. No rash. PSYCHIATRIC: Denies current depression or suicidal thoughts. ENDOCRINE: Denies current thyroid disorders. Denies any blood sugar glucose intolerance. HEME/LYMPHATIC: Has chronic lymphocytic leukemia ALLERGY/IMMUNOLOGY: No immunoglobulin therapy. No immune deficiencies. BREAST: Denies current breast lumps, pain or nipple discharge. PHYSICAL EXAM: VITALS: Reviewed CONSTITUTIONAL: Well developed and in no acute distress. EYES: Conjuctivae without sclera icterus. Extraocular movements grossly intact. HEAD, EARS, NOSE, THROAT: Moist buccal mucosa. Head is atraumatic, normocephalic. Hears conversational speech. No nasal drainage. NECK: Supple. No JV distention. No thyroidomegaly. RESPIRATORY: Non-labored respirations and equal bilateral excursions. No gross wheezes. CARDIOVASCULAR: Palpable 2+ radial pulses. ABDOMEN: No peritonitis. Moderate swelling of the left testicle without skin changes. Tense palpable fluid of the left testicle. LYMPH: No neck lymphadenopathy. MUSCULOSKELETAL: No clubbing cyanosis or edema SKIN: Warm and well perfused with good skin turgor. NEUROLOGIC: Cranial nerves II through XII grossly intact. No focal or lateralizing signs. PSYCH: Appropriate affect. Alert and oriented to person, place and time. Disp lays appropriate insight. CLINCAL LABS: Reviewed. WBC elevated due to chronic lymphocytic leukemia. IMAGING: Independently reviewed. Ultrasound of the left scrotum independent reviewed confirms fluid collection, complex. No recurrent hernia. This is my independent interpretation. RADIOLOGY: Report reviewed RECORDS: previous old records reviewed from recent hospitalization 2 weeks ago. ASSESSMENT: 1. Left scrotal swelling with pain 2. Status post repair of incarcerated left inguinal hernia incorporating sigmoid colon 3. Chronic lymphocytic leukemia with leukocytosis present on admission 4. Expected postsurgical seroma from complex left inguinal hernia repair PLAN: 1. Recommend drainage of left inguinal seroma. 2. Options for bedside drainage discussed versus radiology assisted ultrasound guided drainage. 3. Shared decision making performed. Patient opted for bedside drainage. 4. At this time, patient may have regular diet. ADVANCE DIRECTIVE: Status in chart. Past Medical History Past Medical History: COPD, Osteoarthritis (OA) Additional Past Medical History / Comment(s): Chronic Lymphocytic Leukemia-not currently receiving treatment. Bone marrow biopsy December 2023. History of Any Multi-Drug Resistant Organisms: None Reported Past Surgical History: Hernia Repair Additional Past Surgical History / Comment(s): Bone marrow biopsy December 2023. Hernia repair [address] Ames. Hernia repair 25 years ago. Past Anesthesia/Blood Transfusion Reactions: No Reported Reaction Past Psychological History: No Psychological Hx Reported Smoking Status: Former smoker Past Alcohol Use History: Occasional Past Drug Use History: None Reported - Past Family History Mother Family Medical History: Cancer Medications and Allergies Home Medications Medication Instructions Recorded Confirmed Type Fluticasone Propion/Salmeterol 1 puff PO RT-BID 02/17/24 03/01/24 History [Wixela 250-50 Inhub] traMADol HCl [Ultram] 50 mg PO TID PRN 02/17/24 03/01/24 History Albuterol Sulfate [Albuterol 1 - 2 puff PO RT-Q6H PRN 03/01/24 03/01/24 History Sulfate Hfa] Allergies Allergy/AdvReac Type Severity Reaction Status Date / Time No Known Allergies Allergy Verified 03/01/24 11:18 Surgical - Exam Vital Signs Temp Pulse Resp BP Pulse Ox 97.9 F 78 18 122/77 97 03/01/24 09:28 03/01/24 09:28 03/01/24 09:28 03/01/24 09:28 03/01/24 09:28 Results - Labs 03/01/24 10:33 03/01/24 10:33 Abnormal Lab Results - Last 24 Hours (Table) 03/01/24 03/01/24 Range/Units 10:33 10:33 WBC 21.5 H (3.8-10.6) k/uL RBC 3.33 L (4.30-5.90) m/uL Hgb 11.5 L (13.0-17.5) gm/dL Hct 34.4 L (39.0-53.0) % MCV 103.4 H (80.0-100.0) fL Chloride 108 H (98-107) mmol/L Total Protein 6.1 L (6.3-8.2) g/dL Diabetes panel 03/01/24 Range/Units 10:33 Sodium 141 (137-145) mmol/L Potassium 4.6 (3.5-5.1) mmol/L Chloride 108 H (98-107) mmol/L Carbon Dioxide 29 (22-30) mmol/L BUN 17 (9-20) mg/dL Creatinine 0.79 (0.66-1.25) mg/dL Glucose 99 (74-99) mg/dL Calcium 9.1 (8.4-10.2) mg/dL AST 21 (17-59) U/L ALT 16 (4-49) U/L Alkaline Phosphatase 56 (38-126) U/L Total Protein 6.1 L (6.3-8.2) g/dL Albumin 3.8 (3.5-5.0) g/dL Calcium panel 03/01/24 Range/Units 10:33 Calcium 9.1 (8.4-10.2) mg/dL Albumin 3.8 (3.5-5.0) g/dL Pituitary panel 03/01/24 Range/Units 10:33 Sodium 141 (137-145) mmol/L Potassium 4.6 (3.5-5.1) mmol/L Chloride 108 H (98-107) mmol/L Carbon Dioxide 29 (22-30) mmol/L BUN 17 (9-20) mg/dL Creatinine 0.79 (0.66-1.25) mg/dL Glucose 99 (74-99) mg/dL Calcium 9.1 (8.4-10.2) mg/dL Adrenal panel 03/01/24 Range/Units 10:33 Sodium 141 (137-145) mmol/L Potassium 4.6 (3.5-5.1) mmol/L Chloride 108 H (98-107) mmol/L Carbon Dioxide 29 (22-30) mmol/L BUN 17 (9-20) mg/dL Creatinine 0.79 (0.66-1.25) mg/dL Glucose 99 (74-99) mg/dL Calcium 9.1 (8.4-10.2) mg/dL Total Bilirubin 0.5 (0.2-1.3) mg/dL AST 21 (17-59) U/L ALT 16 (4-49) U/L Alkaline Phosphatase 56 (38-126) U/L Total Protein 6.1 L (6.3-8.2) g/dL Albumin 3.8 (3.5-5.0) g/dL
--- NOTE | 2024-03-01 17:48 | P.PCN ---
Date of Procedure: 03/01/24 Description of Procedure: SURGEON: YEFRI TURNER MD RISK LEAD: NONE. PREOPERATIVE DIAGNOSES: 1. Expected postsurgical seroma, left scrotum 2. Status post repair left inguinal hernia 3. Complex cystic swelling left scrotum POSTOPERATIVE DIAGNOSES: 1. Expected postsurgical seroma, left scrotum 2. Status post repair left inguinal hernia 3. Left scrotal hematoma PROCEDURE PERFORMED: 1. Fine needle aspiration of 23-gauge of seroma of the abdominal wall, 40-mL. ANESTHESIA: 20 mL 1% lidocaine ESTIMATED BLOOD LOSS: 0 mL SPECIMENS: NONE. COMPLICATIONS: NONE. FINDINGS: 1. Liquefied left scrotal seroma 40 cc drained 2. Residual complex mass consistent with gelatinous left scrotal hematoma, 5 x 4 cm 3. At the end of the procedure patient reports decreased tense pressure of the left scrotum INDICATIONS: The patient is a 63-year-old male who is 3 weeks out from repair of left inguinal hernia with incarcerated sigmoid colon. Patient had done well for 1 week and on week 2 had developed swelling of the left groin. Patient presented to the emergency room with CT scan demonstrating swelling of the left scrotal questionable recurrent hernia. Ultrasound of the scrotum demonstrated no recurrent hernia but complex cystic mass of the left scrotum consistent with seroma. Needle aspiration of the seroma was described at length and verbal consent was obtained. DESCRIPTION: After verbal consent, the patient was placed in a supine position. The skin of the left scrotum was cleansed with with ChloraPrep. The skin of the scrotum was anesthetized at the superior portion at 1:00 including the inferior portion at 6:00 anteriorly. Total of 20 cc 1% lidocaine was used.Next, an 23-gauge needle attached to a 60 mL syringe was used to aspirate serosanguineous fluid. A total of 40 mL was drained as multiple independent pockets were confirmed superiorly and inferiorly. Tense fluid of the left scrotum had resolved. Residual 5 x 4 cm swelling consistent with gelatinous hematoma present and unable to aspirate. Patient reports moderate relief of his symptoms. He had tolerated the procedure well. Jockstrap including hernia belt was described for symptomatic relief. Repeat ultrasound was discussed however patient opted then declined.
[2024-03-01 18:03] VITALS: BP 126/77; PULSE 73; TEMP 98.4
[2024-03-02 16:03] LABS: Lymphocytes # (M) 17.85 k/uL (1.0-4.8); Monocytes # (M) 1.72 k/uL (0-1.0); Neutrophils # (M) 2.15 k/uL (1.3-7.7); Neutrophils % (M) 10 %; Nucleated Red Blood Cells 0 /100 WBC (0-0); Total Cells Counted 200
--- NOTE | 2024-04-15 17:40 | P.DS ---
Providers Date of admission: 03/01/24 10:27 Expected date of discharge: 03/01/24 Attending physician: Mya Ames Primary care physician: Napoleon Mendieta - Discharge Diagnosis(es) (1) Swelling of left half of scrotum Status: Acute Hospital Course: CHIEF COMPLAINT: Left scrotal swelling HISTORY OF PRESENT ILLNESS: The patient is a 63-year-old male seen and evaluated. Patient developed a very large tense fluid-filled seroma of the left groin confirmed via ultrasound. Patient had a large complicated left left inguinal hernia repair 3 weeks prior. He has personal history of chronic lymphocytic leukemia which is affecting his recovery. He reports moderate pain and discomfort since his presentation to the emergency room. PAST MEDICAL HISTORY: See list and reviewed PAST SURGICAL HISTORY: See list and reviewed MEDICATIONS: See list and reviewed ALLERGIES: See list and reviewed SOCIAL HISTORY: See list and reviewed FAMILY HISTORY: See list and reviewed REVIEW OF ORGAN SYSTEMS: CONSTITUTIONAL: No fevers or chills. No recent weight loss. EYES: Denies any trouble with vision. No glasses. HEENT: No difficulties with hearing. No nosebleeds. No difficulty swallowing. RESPIRATORY: Has chronic obstructive pulmonary disease. CARDIOVASCULAR: Denies any chest pain, palpitations, or recent heart attacks. GASTROINTESTINAL: Has gastroesophageal reflux disease GENITOURINARY: Denies any blood in urine or increased urinary frequency. NEUROLOGICAL: Denies any numbness or tingling along the distal extremities. No seizure disorders or headaches. MUSCULOSKELETAL: Denies any back pain, stiffness or joint arthritis. SKIN: No current skin cancer. No rash. PSYCHIATRIC: Denies current depression or suicidal thoughts. ENDOCRINE: Denies current thyroid disorders. Denies any blood sugar glucose intolerance. HEME/LYMPHATIC: Has chronic lymphocytic leukemia ALLERGY/IMMUNOLOGY: No immunoglobulin therapy. No immune deficiencies. BREAST: Denies current breast lumps, pain or nipple discharge. PHYSICAL EXAM: VITALS: Reviewed CONSTITUTIONAL: Well developed and in no acute distress. EYES: Conjuctivae without sclera icterus. Extraocular movements grossly intact. HEAD, EARS, NOSE, THROAT: Moist buccal mucosa. Head is atraumatic, normocephalic. Hears conversational speech. No nasal drainage. NECK: Supple. No JV distention. No thyroidomegaly. RESPIRATORY: Non-labored respirations and equal bilateral excursions. No gross wheezes. CARDIOVASCULAR: Palpable 2+ radial pulses. ABDOMEN: No peritonitis. Moderate swelling of the left testicle without skin changes. Tense palpable fluid of the left testicle. LYMPH: No neck lymphadenopathy. MUSCULOSKELETAL: No clubbing cyanosis or edema SKIN: Warm and well perfused with good skin turgor. NEUROLOGIC: Cranial nerves II through XII grossly intact. No focal or lateralizing signs. PSYCH: Appropriate affect. Alert and oriented to person, place and time. Displays appropriate insight. CLINCAL LABS: Reviewed. WBC elevated due to chronic lymphocytic leukemia. IMAGING: Independently reviewed. Ultrasound of the left scrotum independent reviewed confirms fluid collection, complex. No recurrent hernia. This is my independent interpretation. RADIOLOGY: Report reviewed RECORDS: previous old records reviewed from recent hospitalization 2 weeks ago. ASSESSMENT: 1. Left scrotal swelling with pain 2. Status post repair of incarcerated left inguinal hernia incorporating sigmoid colon 3. Chronic lymphocytic leukemia with leukocytosis present on admission 4. Expected postsurgical seroma from complex left inguinal hernia repair PLAN: 1. Recommend drainage of left inguinal seroma. 2. Options for bedside drainage discussed versus radiology assisted ultrasound guided drainage. 3. Shared decision making performed. Patient opted for bedside drainage. 4. At this time, patient may have regular diet. ADVANCE DIRECTIVE: Status in chart. ADDENDUM: After bedside needle aspiration of seroma, patient reports decreased swelling and pain and discomfort of the left scrotum. Patient felt more comfortable and desired to go home. He was clinically stable prior to discharge. Close outpatient follow-up discussed and reviewed. Procedures: Needle aspiration left scrotal seroma Patient Condition at Discharge: Stable Plan - Discharge Summary New Discharge Prescriptions: Continue traMADol HCl [Ultram] 50 mg PO TID PRN PRN Reason: Pain Albuterol Sulfate [Albuterol Sulfate Hfa] 1 - 2 puff PO RT-Q6H PRN PRN Reason: Shortness Of Breath Fluticasone Propion/Salmeterol [Wixela 250-50 Inhub] 1 puff PO RT-BID Discharge Medication List Fluticasone Propion/Salmeterol [Wixela 250-50 Inhub] 1 puff PO RT-BID 02/17/24 [History] traMADol HCl [Ultram] 50 mg PO TID PRN 02/17/24 [History] Albuterol Sulfate [Albuterol Sulfate Hfa] 1 - 2 puff PO RT-Q6H PRN 03/01/24 [History] Follow up Appointment(s)/Referral(s): Napoleon Mendieta DO [Primary Care Provider] - 1-2 days Mya Ames MD [STAFF PHYSICIAN] - 03/02/24 6:30 pm (TELEHEALTH) Patient Instructions/Handouts: Hydrocele (DC), Scrotal Pain (ED) Discharge Disposition: HOME SELF-CARE
== END 2024-03-01 18:05 | disposition home or self-care (01) ==
LOC: EC 09:24 → 6NMEDSUR 10:27
PROVIDERS: ADMIT Surgery Plastic and Reconstructive Surgery; ATTEND Surgery Plastic and Reconstructive Surgery
DX: N99.842 Postprocedural seroma of a genitourinary system organ or structure following a genitourinary system procedure (principal); Y83.8 Other surgical procedures as the cause of abnormal reaction of the patient, or of later complication, without mention of misadventure at the time of the procedure; J44.9 Chronic obstructive pulmonary disease, unspecified; Z85.6 Personal history of leukemia; Z87.891 Personal history of nicotine dependence; Z79.51 Long term (current) use of inhaled steroids; Z79.899 Other long term (current) drug therapy
CPT/HCPCS: 76870; 80053; 85025; 93975; 96360; 96361; 99284

== ENCOUNTER → 2024-05-03 | Outpatient (CLI) | payer OTHER ==
--- NOTE | 2024-05-04 13:32 | CT ---
EXAMINATION TYPE: CT chest w con DATE OF EXAM: 05/03/2024 2:51 PM COMPARISON: 08/20/2023 CLINICAL INDICATION: Male, 63 years old with history of C34.11 MALIGNANT NEOPLASM OF UPPER LOBE, RIGH T BRO; PHH, Chronic cough, COPD TECHNIQUE: Multiple axial images were obtained through the chest. Sagittal and coronal reformats were created for review. MIP was performed on a separate workstation. Contrast used:100 mL of Isovue 300 with IV Contrast (None if empty) Oral contrast used: (None if empty) CT DLP: 485 mGycm, Automated exposure control for dose reduction was used. FINDINGS: LUNGS/ PLEURA: No focal consolidation, pneumothorax or pleural effusion. Mild centrilobular emphysema changes. AIRWAY: Patent and unremarkable. HEART: Size within normal limits. MEDIASTINUM: Fell lymph nodes are seen throughout the enlarged lymph nodes are seen throughout the me diastinum. Examples include right low paratracheal measuring 18 mm in short axis previously 15 mm ran d AP window measuring 13 mm in short axis, similar to prior, bilateral pulmonary hilum lymph nodes ar e present. VASCULATURE: No aortic aneurysm. MUSCULOSKELETAL: No acute osseous abnormalities SOFT TISSUES/LYMPH NODES: Bilateral axillary lymph nodes are present which are enlarged measuring up to 25 mm on the right rand 26 mm on the left previously 13 mm. LOWER NECK: No significant findings. UPPER ABDOMEN: Partially visualized enlarged lymph nodes in the upper abdomen. Examples include: Port a hepatis lymph node measuring up to 27 mm in short axis, previously 18 mm. Gastrohepatic lymph nodes measuring up to 12 mm in short axis not definitively visualized on prior. Low attenuating areas are seen scattered within the liver possibly representing cysts. IMPRESSION: Lymphadenopathy involving the bilateral axillas, mediastinum and upper abdomen compatible with history provided of leukemia. Lymph nodes are increased in size and quantity throughout the exa m compared to prior. [facility], , 05/04/2024 1:30 PM
== END | disposition home or self-care (01) ==
LOC: RADCTMAIN 13:38
PROVIDERS: ATTEND Internal Medicine
DX: C34.11 Malignant neoplasm of upper lobe, right bronchus or lung (principal); C34.01 Malignant neoplasm of right main bronchus; J44.9 Chronic obstructive pulmonary disease, unspecified; R59.0 Localized enlarged lymph nodes
CPT/HCPCS: 71260; Q9967